=== PATIENT | female | born 1960 | race African-American/Black ===

== ENCOUNTER → 2017-06-18 | Outpatient (CLI) | payer MEDICARE, MEDICAID ==
[~2017-06-18] MED LIST: ALBUAER3 IN; AMIT PO; AMITR PO; ATE50T PO; BENA40TA7 PO; CARI250T PO; CLON0.2T PO; FLUT250M2 INH; HYDR-531 PO; NAP500T PO; QUET100T38 PO; ZOLP-158 PO
[2017-06-18 12:39] LABS: Basophils # (auto) 0.1 uL; Basophils % (auto) 0.9 % (0.0-2.0); CONDITION Y; DEFINITIVE SEE PRINTOUT; Eosinophils # (auto) 0.1 uL; Eosinophils % (auto) 2.1 % (0.0-7.0); Hemoglobin 13.6 g/dL (12.2-16.2); Lymphocytes # (auto) 2.5 uL; Lymphocytes % (auto) 38.1 % (10.0-50.0); Mean Corpuscular Hemoglobin 24.6 pg (28.0-32.0); Mean Corpuscular Hgb Conc. 32.3 g/dL (32.0-36.0); Mean Corpuscular Volume 76.1 fL (80.0-100.0); Mean Platelet Volume 10.4 fL (7.4-10.4); Monocytes # (auto) 0.3 uL; Monocytes % (auto) 4.9 % (0.0-12.0); Neutrophils # (auto) 3.6 uL; Platelet Count (auto) 289 10^3/uL (140-450); Red Cell Distribution Width 17.7 % (11.6-16.0); SUSPECT SEE PRINTOUT; White Blood Cell 6.6 10^3/uL (4.4-10.8)
[2017-06-18 12:57] LABS: Albumin 4.2 g/dL (3.4-5.0); BUN/Creatinine Ratio 12.3; Bilirubin, Total 0.3 mg/dL (0.2-1.0); Calcium 9.4 mg/dL (8.5-10.1); Potassium 4.1 mmol/L (3.5-5.1); Total Protein 8.6 g/dL (6.4-8.2)
[2017-06-19 23:43] LABS: Rheumatoid Arthritis Factor <10.0 IU/mL (0.0-13.9)
== END | disposition home or self-care (01) ==
LOC: LAB 11:49
PROVIDERS: ATTEND Physician Assistant
DX: I11.9 Hypertensive heart disease without heart failure (principal); I21.4 Non-ST elevation (NSTEMI) myocardial infarction; F31.30 Bipolar disorder, current episode depressed, mild or moderate severity, unspecified; J45.909 Unspecified asthma, uncomplicated; Z79.899 Other long term (current) drug therapy
CPT/HCPCS: 36415; 80053; 80061; 82306; 82607; 83036; 84443; 85025; 86038; 86431

== ENCOUNTER → 2017-07-02 | Outpatient (CLI) | payer MEDICARE, MEDICAID ==
[~2017-07-02] MED LIST changes: -ALBUAER3 IN; -CARI250T PO; -FLUT250M2 INH; -HYDR-531 PO; -NAP500T PO
== END | disposition home or self-care (01) ==
LOC: XYW 10:57
PROVIDERS: ATTEND Internal Medicine Cardiovascular Disease
DX: I35.1 Nonrheumatic aortic (valve) insufficiency (principal); I10 Essential (primary) hypertension; I51.7 Cardiomegaly
CPT/HCPCS: 93306

== ENCOUNTER 2017-10-04 07:43 | Emergency (ER) | payer MEDICARE, MEDICAID ==
[~2017-10-04] VITALS: Ht 157.5 cm; Wt 100.7 kg
[~2017-10-04 07:43] MED LIST changes: +ALBUAER3 IN; -AMIT PO; +CARI250T PO; -CLON0.2T PO; +FLUT250M2 INH; +HYDR-531 PO; +NAP500T PO
[2017-10-04 08:09] VITALS: BP 150/73
== END 2017-10-04 09:23 | disposition home or self-care (01) ==
LOC: ER 07:43
DX: G89.29 Other chronic pain (principal); M54.5 Low back pain; I10 Essential (primary) hypertension; J45.909 Unspecified asthma, uncomplicated; F17.210 Nicotine dependence, cigarettes, uncomplicated; Z88.6 Allergy status to analgesic agent; Z76.0 Encounter for issue of repeat prescription; Z79.899 Other long term (current) drug therapy

== ENCOUNTER 2018-04-21 12:54 | Emergency (ER) | payer OTHER, MEDICAID ==
[~2018-04-21] VITALS: Ht 157.5 cm; Wt 108.9 kg
[2018-04-21 13:12] VITALS: BP 162/77
== END 2018-04-21 15:22 | disposition home or self-care (01) ==
LOC: ER 12:54
DX: R51 Headache (principal); M54.2 Cervicalgia; J45.909 Unspecified asthma, uncomplicated; Z90.49 Acquired absence of other specified parts of digestive tract
CPT/HCPCS: 70450

== ENCOUNTER 2018-07-19 18:46 | Emergency (ER) | payer OTHER, MEDICAID ==
[~2018-07-19] VITALS: Ht 157.5 cm; Wt 113.4 kg
[2018-07-20 00:33] VITALS: BP 126/69
== END 2018-07-20 01:00 | disposition home or self-care (01) ==
LOC: ER 18:46
DX: H61.23 Impacted cerumen, bilateral (principal); H60.93 Unspecified otitis externa, bilateral; J45.909 Unspecified asthma, uncomplicated; I10 Essential (primary) hypertension; F17.210 Nicotine dependence, cigarettes, uncomplicated; Z90.49 Acquired absence of other specified parts of digestive tract; Z88.5 Allergy status to narcotic agent; Z79.1 Long term (current) use of non-steroidal anti-inflammatories (NSAID); Z79.51 Long term (current) use of inhaled steroids; Z79.899 Other long term (current) drug therapy
CPT/HCPCS: 69210

== ENCOUNTER 2019-10-05 21:32 | Inpatient (IN) | payer OTHER, MEDICAID ==
[~2019-10-05] VITALS: Ht 162.6 cm; Wt 110.8 kg
[2019-10-05] MEDS ORDERED: DILTIAZEM HCL 25 MG/5 ML VIAL IV ONE (21:45)
[2019-10-05] MEDS ORDERED: DILTIAZEM 125mg/125ml BAG KIT 125 ML IV ONE (22:15)
[2019-10-05 22:18] LABS: Basophils # (auto) 0.1 uL; Monocytes # (auto) 0.6 uL; Neutrophils # (auto) 6.5 uL
[2019-10-05 22:21] LABS: Eosinophils # (auto) 0.1 uL; Eosinophils % (auto) 1.2 % (0.0-7.0); Hematocrit 39.7 % (36.0-46.0); Hemoglobin 12.6 g/dL (12.2-16.2); Lymphocytes # (auto) 2.6 uL; Mean Corpuscular Hemoglobin 24.3 pg (28.0-32.0); Mean Corpuscular Hgb Conc. 31.8 g/dL (32.0-36.0); Mean Corpuscular Volume 76.2 fL (80.0-100.0); Monocytes % (auto) 6.3 % (0.0-12.0); Neutrophils % (auto) 65.5 % (37.0-80.0); Nucleated Red Blood Cells % 0.1 %; Platelet Count (auto) 258 10^3/uL (140-450); Red Blood Cells 5.21 10^6/uL (4.0-5.20); Red Cell Distribution Width 16.5 % (11.8-14.3)
[2019-10-05 22:34] LABS: Albumin 3.8 g/dL (3.4-5.0); Calcium 8.9 mg/dL (8.5-10.1); Magnesium 2.1 mg/dL (1.6-2.6)
[2019-10-05 22:40] LABS: BUN/Creatinine Ratio 17.3; Bilirubin, Total 0.3 mg/dL (0.2-1.0); Total Protein 7.9 g/dL (6.4-8.2)
[2019-10-05] MEDS ORDERED: ONDANSETRON HCL 4 MG/2 ML VIAL IV ONE (23:15)
[2019-10-05] MEDS ORDERED: ASPirin 81 mg TAB PO ONE (23:15)
[2019-10-05] MEDS ORDERED: MORPHINE SULFATE 4 MG/ML SYR/VIAL IV ONE (23:15)
[2019-10-05 23:21] LABS: Urine Bacteria FEW /hpf (None Seen); Urine Blood Negative /uL (Negative); Urine Mucus FEW (None Seen); Urine Specific Gravity 1.007 (1.001-1.035); Urine WBC <1 /hpf (0 - 5)
[2019-10-06] MEDS ORDERED: MORPHINE SULF INJ 2 MG/ML SYRINGE 1ML IV PRN (01:15)
[2019-10-06] MEDS ORDERED: ONDANSETRON HCL 4 MG/2 ML VIAL IV PRN (01:15)
[2019-10-06] MEDS ORDERED: NITROGLYCERIN 0.4 MG SL TAB SL PRN (01:15)
[2019-10-06] MEDS ORDERED: ALBUTEROL SULF 2.5 MG/0.5ML(0.5%) NEB SOLN NEB PRN (01:15)
[2019-10-06] MEDS ORDERED: ACETAMINOPHEN 325 MG TAB PO PRN (01:15)
[2019-10-06] MEDS ORDERED: DIGOXIN (250MCG/ML) 2 ML AMPULE IV ONE ×4 (01:30→03:15)
[2019-10-06 01:45] LABS: Partial Thromboplastin Time 27.8 sec (23.64-32.05)
--- NOTE | 2019-10-06 05:00 | NUR ---
Telemetry admit from AZ[facility] BHATT admitted to Telemetry unit. Patient oriented to MERLYN CARRANZA, primary RN, unit, room, bed, and unit policies regarding patient care and visiting hours. Patient now on continuous telemetry monitoring, tele box # 71 and telemetry reading on arrival to unit is sinus rhythm. Patient denies pain, palpitations, or shortness of breath at this time. Patient weighed by bedscale and encouraged to call if they need something. All questions and concerns addressed, patient verbalized understanding. Bed is locked in lowest position, side rails x 2 are up, call light is within reach, and bed alarm is on.
[2019-10-06 05:40] VITALS: BP 114/52
[2019-10-06] MEDS ORDERED: TRIATAB3 PO (05:55)
[2019-10-06] MEDS ORDERED: MET50T PO (05:55)
[2019-10-06] MEDS ORDERED: AMIT10TA6 PO (05:55)
--- NOTE | 2019-10-06 07:30 | NUR ---
Opening Shift Note Assumed care of patient, awake, alert, and oriented x4. No S/S of distress/SOB or pain. IV is in left forearm 20 gauge and is asymptomatic, intact, patent, and saline locked. Bed is locked and in lowest position and call light is within reach. Instructed on POC and to call for assist PRN, and patient verbalized understanding. Will continue to monitor for changes Q1hr and PRN.
[2019-10-06 09:00] VITALS: BP 135/56
[2019-10-06] MEDS: ASPirin 81 mg TAB PO SCH (10:18)
[2019-10-06] MEDS: METOPROLOL TARTRATE 50 MG TAB PO SCH ×2 (10:19→21:57)
[2019-10-06] MEDS: PANTOPRAZOLE 40 MG TAB PO SCH (10:19)
[2019-10-06] MEDS: amLODIPine BESYLATE 5 MG TAB PO SCH (10:20)
[2019-10-06] MEDS: HCTZ 25 MG TAB PO SCH (10:21)
--- NOTE | 2019-10-06 10:28 | NUR ---
RT NOTE: NO TX INDICATED AT THIS TIME. NO SIGNS OF RESPIRATORY DISTRESS NOTED. LUNG SOUNDS CLEAR T/O. RA SPO2 98 HR 88 RR 16. PT AWARE TO PAGE FOR RESPIRATORY IF NEED FOR TX ARISES. WILL CONTINUE TO MONITOR.
[2019-10-06 10:56] VITALS: BP 135/56
[2019-10-06 13:00] VITALS: BP 132/58
--- NOTE | 2019-10-06 13:00 | NUR ---
Satellite Specialist at bedside.
[2019-10-06 17:00] VITALS: BP 134/59
--- NOTE | 2019-10-06 17:47 | NUR ---
Dr. Caryn MD, at bedside; new orders received.
[2019-10-06] MEDS ORDERED: ZOLPIDEM TARTRATE 5 MG TAB PO PRN (18:00)
[2019-10-06] MEDS ORDERED: RIVAROXABAN 15 MG TAB PO SCH (18:00)
[2019-10-06 18:30] LABS: Basophils # (auto) 0.1 uL; Eosinophils # (auto) 0.3 uL; Red Blood Cells 4.94 10^6/uL (4.0-5.20)
[2019-10-06 18:32] LABS: Basophils % (auto) 0.6 % (0.0-2.0); Eosinophils % (auto) 3.4 % (0.0-7.0); Hematocrit 37.7 % (36.0-46.0); Hemoglobin 12.3 g/dL (12.2-16.2); Lymphocytes % (auto) 33.7 % (10.0-50.0); Mean Corpuscular Hemoglobin 24.8 pg (28.0-32.0); Mean Corpuscular Hgb Conc. 32.6 g/dL (32.0-36.0); Mean Corpuscular Volume 76.3 fL (80.0-100.0); Monocytes # (auto) 0.6 uL; Monocytes % (auto) 6.3 % (0.0-12.0); Nucleated Red Blood Cells % 0.1 %; Platelet Count (auto) 262 10^3/uL (140-450); Red Cell Distribution Width 16.5 % (11.8-14.3); White Blood Cell 8.9 10^3/uL (4.4-10.8)
[2019-10-06 18:49] LABS: Calcium 9.2 mg/dL (8.5-10.1); Magnesium 2.3 mg/dL (1.6-2.6); Potassium 4.3 mmol/L (3.5-5.1)
[2019-10-06 18:51] LABS: BUN/Creatinine Ratio 17.7
--- NOTE | 2019-10-06 19:30 | NUR ---
Opening Shift Note Assumed care of patient, awake and alert x4. Patient denies pain, shortness of breath, or palpitations at this time. No signs/symptoms of distress noted at this time. Instructed on plan of care and to call for assistance as needed, patient verbalized understanding. Bed is locked in lowest position, side rails x 2 are up, and call light is within reach.
--- NOTE | 2019-10-06 20:18 | NUR ---
Respiratory note: PT ASSESSED FOR PRN MED NEB TX. PT IS CURRENTLY ON ROOM AIR: HR 68, RR 16, SPO2 97%. PT SHOWS NO S/S OF SOB OR RESPIRATORY DISTRESS. MED NEB TX NOT INDICATED AT THIS TIME. PT AWARE TO CALL RESPIRATORY IF SOB OCCURS. WILL CONTINUE TO MONITOR.
[2019-10-06 22:00] VITALS: BP 142/58
[2019-10-06] MEDS ORDERED: AMITRIPTYLINE HCL 25 MG TAB PO SCH (22:00)
[2019-10-07 05:00] VITALS: BP 126/76
--- NOTE | 2019-10-07 06:12 | NUR ---
PT ASSESSED FOR PRN MED NEB TX. SPO2 97% ON RA, HR 87. PT DENIES ANY RESPIRATORY DISTRESS. NO TX INDICATED AT THIS TIME. PT IS AWARE TO HAVE RT PAGED IF TX NEEDED.
[2019-10-07 06:14] LABS: Basophils # (auto) 0.1 uL; Basophils % (auto) 0.7 % (0.0-2.0); Eosinophils # (auto) 0.3 uL; Eosinophils % (auto) 3.4 % (0.0-7.0); Hematocrit 37.8 % (36.0-46.0); Hemoglobin 12.2 g/dL (12.2-16.2); Lymphocytes # (auto) 2.7 uL; Lymphocytes % (auto) 32.5 % (10.0-50.0); Mean Corpuscular Hemoglobin 24.6 pg (28.0-32.0); Mean Corpuscular Hgb Conc. 32.2 g/dL (32.0-36.0); Mean Corpuscular Volume 76.6 fL (80.0-100.0); Monocytes # (auto) 0.6 uL; Neutrophils # (auto) 4.6 uL; Neutrophils % (auto) 56.4 % (37.0-80.0); Nucleated Red Blood Cells % 0.1 %; Platelet Count (auto) 239 10^3/uL (140-450); Red Blood Cells 4.93 10^6/uL (4.0-5.20); Red Cell Distribution Width 16.6 % (11.8-14.3); White Blood Cell 8.2 10^3/uL (4.4-10.8)
[2019-10-07 06:25] LABS: BUN/Creatinine Ratio 14.8; Calcium 8.8 mg/dL (8.5-10.1); Potassium 3.8 mmol/L (3.5-5.1)
--- NOTE | 2019-10-07 07:20 | NUR ---
Opening Shift Note Assumed care of patient, awake, alert, and oriented x4. No S/S of distress/SOB or pain. Bed is locked and in lowest position and call light is within reach. Instructed on POC and to call for assist PRN, and patient verbalized understanding. Will continue to monitor for changes Q1hr and PRN.
[2019-10-07 09:00] VITALS: BP 136/66
[2019-10-07] MEDS ORDERED: QUEtiapine FUMARATE 25 MG TAB PO SCH (10:00)
[2019-10-07] MEDS: ASPirin 81 mg TAB PO SCH (10:38)
[2019-10-07] MEDS: HCTZ 25 MG TAB PO SCH (10:39)
[2019-10-07] MEDS: amLODIPine BESYLATE 5 MG TAB PO SCH (10:40)
[2019-10-07] MEDS: METOPROLOL TARTRATE 50 MG TAB PO SCH (10:40)
[2019-10-07] MEDS: PANTOPRAZOLE 40 MG TAB PO SCH (12:39)
--- NOTE | 2019-10-07 12:40 | NUR ---
Dr. [place], Fisher Mussel, cleared patient for discharge.
[2019-10-07 13:00] VITALS: BP 120/56
--- NOTE | 2019-10-07 13:19 | NUR ---
Discharge planning per consult, patient has orders for home health. [facility] Aura [facility]. Teri from [facility] called and advised that they will accept the patient. Kofi called and advised that start of care will be tomorrow 10.08.19. Nurse Curran was advised of dc plan. Addendum: 10/07/19 at 1325 by SHAHEEN RUIZ Amended: Links added.
--- NOTE | 2019-10-07 14:12 | NUR ---
Dr. Ross Rubin MD, at bedside; new orders received.
[2019-10-07] MEDS ORDERED: AML5T PO (14:13)
[2019-10-07] MEDS ORDERED: ASPI325T25 PO (14:13)
[2019-10-07] MEDS ORDERED: HCTZ25T PO (14:13)
[2019-10-07 15:09] VITALS: BP 120/56
--- NOTE | 2019-10-07 15:30 | NUR ---
Dr. Kenny, [employer] [employer], at bedside. Addendum: 10/07/19 at 1535 by FRANSISCO HEWITT RN RN charted on wrong patient
--- NOTE | 2019-10-07 16:54 | NUR ---
Discharge instructions given as ordered. Encourage to follow up with PMD as instructed. All questions and concerns addressed. Patient verbalized understanding. Medication reconciliation form completed and copy given to patient. IV removed with catheter intact, pressure dressing applied. Telemetry unit returned to ICU. Patient taken to vehicle via wheelchair with all personal belongings, accompanied by staff member. No distress noted at time of departure.
== END 2019-10-07 16:00 | disposition home health service (06) | DRG 309 ==
LOC: EDBD 21:32 → ER 21:35 → TELE 21:36 → TELE-WESTW 10-06 04:51
PROVIDERS: ADMIT Nurse Practitioner; ATTEND Internal Medicine
DX: I48.92 Unspecified atrial flutter (principal); J45.901 Unspecified asthma with (acute) exacerbation; N17.9 Acute kidney failure, unspecified; Z68.41 Body mass index [BMI] 40.0-44.9, adult; J44.9 Chronic obstructive pulmonary disease, unspecified; E66.9 Obesity, unspecified; N18.3 Chronic kidney disease, stage 3 (moderate); F41.9 Anxiety disorder, unspecified; F17.210 Nicotine dependence, cigarettes, uncomplicated; I48.91 Unspecified atrial fibrillation; G47.00 Insomnia, unspecified; I13.10 Hypertensive heart and chronic kidney disease without heart failure, with stage 1 through stage 4 chronic kidney disease, or unspecified chronic kidney disease; Z82.49 Family history of ischemic heart disease and other diseases of the circulatory system; Z90.49 Acquired absence of other specified parts of digestive tract; Z88.5 Allergy status to narcotic agent
CPT/HCPCS: 36415; 71045; 80048; 80053; 81001; 83735; 83880; 84443; 84484; 85025; 85610; 85730; 93005; 93306; 96365; 96375; G0378; J2405

== ENCOUNTER 2019-10-12 05:47 | Emergency (ER) | payer OTHER, MEDICAID ==
[~2019-10-12] VITALS: Ht 157.5 cm; Wt 113.4 kg
[~2019-10-12 05:47] MED LIST changes: +AMIT10TA6 PO; -AMITR PO; +AML5T PO; +ASPI325T25 PO; -ATE50T PO; -BENA40TA7 PO; -CARI250T PO; +HCTZ25T PO; -HYDR-531 PO; +MET50T PO; -NAP500T PO
[2019-10-12 07:11] LABS: Basophils # (auto) 0.1 uL; Eosinophils # (auto) 0.2 uL; Hematocrit 39.9 % (36.0-46.0); Lymphocytes # (auto) 2.2 uL; Red Blood Cells 5.25 10^6/uL (4.0-5.20); White Blood Cell 8.4 10^3/uL (4.4-10.8)
[2019-10-12 07:13] LABS: Basophils % (auto) 1.2 % (0.0-2.0); Eosinophils % (auto) 2.5 % (0.0-7.0); Hemoglobin 13.2 g/dL (12.2-16.2); Lymphocytes % (auto) 26.3 % (10.0-50.0); Mean Corpuscular Hemoglobin 25.1 pg (28.0-32.0); Mean Corpuscular Hgb Conc. 33.1 g/dL (32.0-36.0); Mean Corpuscular Volume 76.1 fL (80.0-100.0); Monocytes # (auto) 0.6 uL; Monocytes % (auto) 6.6 % (0.0-12.0); Neutrophils # (auto) 5.3 uL; Neutrophils % (auto) 63.4 % (37.0-80.0); Nucleated Red Blood Cells % 0.2 %; Platelet Count (auto) 300 10^3/uL (140-450); Red Cell Distribution Width 16.5 % (11.8-14.3)
[2019-10-12] MEDS ORDERED: AMIODARONE HCL 200 MG TAB PO ONE (07:15)
[2019-10-12 07:28] LABS: INR 0.98 (0.9-1.15); Partial Thromboplastin Time 27.1 sec (23.64-32.05)
[2019-10-12 07:29] LABS: Alanine Aminotransferase 28 U/L (13-56); Albumin 3.7 g/dL (3.4-5.0); Anion Gap 6 (5-15); Aspartate Aminotransferase 17 U/L (15-37); BUN/Creatinine Ratio 12.7; Blood Urea Nitrogen 14 mg/dL (7-18); Calcium 8.8 mg/dL (8.5-10.1); Carbon Dioxide 26 mmol/L (21-32); Chloride 110 mmol/L (98-107); GFR African American 65 mL/min; GFR Non-African American 54 mL/min; Glucose 150 mg/dL (74-106); Potassium 3.6 mmol/L (3.5-5.1); Sodium 142 mmol/L (136-145)
[2019-10-12 07:34] LABS: Alkaline Phosphatase 100 U/L (45-117); Bilirubin, Total 0.5 mg/dL (0.2-1.0); Total Protein 8.5 g/dL (6.4-8.2)
[2019-10-12] MEDS ORDERED: IBUPROFEN 800 MG TAB PO ONE (08:30)
[2019-10-12 10:30] VITALS: BP 124/73
== END 2019-10-12 10:55 | disposition home or self-care (01) ==
LOC: ER 05:47
DX: I48.91 Unspecified atrial fibrillation (principal); I10 Essential (primary) hypertension; R07.89 Other chest pain; F41.9 Anxiety disorder, unspecified; J44.1 Chronic obstructive pulmonary disease with (acute) exacerbation; F17.210 Nicotine dependence, cigarettes, uncomplicated; Z90.49 Acquired absence of other specified parts of digestive tract; Z88.6 Allergy status to analgesic agent; Z79.899 Other long term (current) drug therapy
CPT/HCPCS: 36415; 71045; 80053; 83880; 84484; 85025; 85610; 85730; 93005

== ENCOUNTER 2021-10-15 21:22 | Inpatient (IN) | payer OTHER, MEDICAID ==
[~2021-10-15] VITALS: Ht 152.4 cm; Wt 99.9 kg
[~2021-10-15 21:22] MED LIST changes: -AMIT10TA6 PO; +AMIT1TAB PO; +AMIT1TAB34 PO; +AMLO-489 PO; -HCTZ25T PO; +HYDR-4833 PO; +HYDR25TA5 PO; +METO-289 PO; +QUET50TA PO; -ZOLP-158 PO; +ZOLP5TAB PO
[2021-10-15] MEDS ORDERED: IPRATROPIUM BROM 0.5 MG/2.5ML INH SOL ONE (21:39)
[2021-10-15] MEDS ORDERED: ALBUTEROL SULF 2.5 MG/0.5ML(0.5%) NEB SOLN ONE ×2 (21:39→21:42)
[2021-10-15] MEDS ORDERED: methylPREDNISolone SOD SUCC 125 MG/2 ML VL IV ONE (22:00)
[2021-10-15] MEDS ORDERED: NITROGLYCERIN 0.2MG/HR TOPICAL PATCH TD ONE (22:15)
[2021-10-15 22:19] LABS: Eosinophils # (auto) 0.1 10 ^3/uL (0-0.8); Hemoglobin 14.2 g/dL (12.2-16.2)
[2021-10-15 22:21] LABS: Basophils # (auto) 0.1 10 ^3/uL (0-0.2); Basophils % (auto) 0.6 % (0.0-2.0); Hematocrit 45.2 % (36.0-46.0); Lymphocytes # (auto) 1.7 10 ^3/uL (0.4-5.4); Lymphocytes % (auto) 15.7 % (10.0-50.0); Mean Corpuscular Hemoglobin 25.1 pg (28.0-32.0); Mean Corpuscular Hgb Conc. 31.4 g/dL (32.0-36.0); Mean Corpuscular Volume 79.9 fL (80.0-100.0); Monocytes % (auto) 9.1 % (0.0-12.0); Neutrophils % (auto) 73.6 % (37.0-80.0); Nucleated Red Blood Cells % 0.2 %; Red Blood Cells 5.66 10^6/uL (4.0-5.20); Red Cell Distribution Width 19.2 % (11.8-14.3); White Blood Cell 10.8 10^3/uL (4.4-10.8)
[2021-10-15] MEDS ORDERED: NITROGLYCERIN 2% OINT 1GM PKG TD ONE (22:30)
[2021-10-15 23:04] LABS: INR 1.21 (0.9-1.15)
[2021-10-15 23:06] LABS: BUN/Creatinine Ratio 14.6; Calcium 8.2 mg/dL (8.5-10.1)
[2021-10-15 23:07] LABS: Albumin 2.9 g/dL (3.4-5.0); Bilirubin, Total 1.7 mg/dL (0.2-1.0); Magnesium 2.6 mg/dL (1.6-2.6); Total Protein 7.4 g/dL (6.4-8.2)
[2021-10-15] MEDS ORDERED: ACETAMINOPHEN 325 MG TAB PO ONE (23:15)
[2021-10-15] MEDS ORDERED: hydrALAZINE HCL 20 MG/ML VL IV ONE (23:15)
[2021-10-15] MEDS ORDERED: ASPirin 325 MG TAB PO ONE (23:15)
[2021-10-15] MEDS ORDERED: FUROSEMIDE 40 MG/4 ML VIAL IV ONE (23:15)
[2021-10-16] MEDS ORDERED: ALBUTEROL SULF 2.5 MG/0.5ML(0.5%) NEB SOLN NEB ONE
[2021-10-16] MEDS ORDERED: IPRATROPIUM BROM 0.5 MG/2.5ML INH SOL NEB ONE
[2021-10-16] MEDS ORDERED: ONDANSETRON HCL 4 MG/2 ML VIAL IV PRN (00:30)
[2021-10-16] MEDS ORDERED: NITROGLYCERIN 0.4 MG SL TAB SL PRN (00:30)
[2021-10-16] MEDS ORDERED: LORazepam 2MG/ML-1ML VIAL IV ONE ×2 (00:30→03:45)
[2021-10-16] MEDS ORDERED: MORPHINE SULFATE INJECTION 2 MG/ML SYRG IV PRN (00:30)
[2021-10-16] MEDS ORDERED: dilTIAZem 25 MG/5 ML VIAL IV ONE (00:45)
[2021-10-16] MEDS ORDERED: IOHEXOL 350 MG/ML 100ML IJ ONE (00:53)
[2021-10-16 01:25] LABS: Urine Bacteria NONE SEEN /hpf (None Seen); Urine Blood Negative /uL (Negative); Urine Hyaline Cast FEW /lpf (0 - 2); Urine Specific Gravity 1.006 (1.001-1.035); Urine WBC 1 /hpf (0 - 5)
[2021-10-16] MEDS ORDERED: dilTIAZem 125mg/125ml BAG KIT 125 ML IV SCH (02:00)
[2021-10-16] MEDS: IPRATROPIUM BROM 0.5 MG/2.5ML INH SOL NEB SCH ×4 (03:04→21:29)
[2021-10-16] MEDS ORDERED: ENOXAPARIN SOD 100 MG/1 ML SYRINGE SC ONE (05:45)
[2021-10-16] MEDS ORDERED: AMIODARONE HCL 150 MG in D5W 5% 100 ML IV ONE (07:00)
[2021-10-16] MEDS ORDERED: AMIODARONE 450mg/250ml AE 250 ML IV SCH (07:15)
[2021-10-16] MEDS: ALBUTEROL SULF 2.5 MG/0.5ML(0.5%) NEB SOLN NEB SCH ×3 (07:32→21:28)
[2021-10-16] MEDS ORDERED: APIXABAN 5 MG TAB PO SCH (10:00)
[2021-10-16] MEDS ORDERED: ASPirin 81 mg TAB PO SCH (10:00)
[2021-10-16] MEDS ORDERED: PANTOPRAZOLE 40 MG TAB PO SCH (10:00)
[2021-10-16] MEDS: FUROSEMIDE 20 MG/2 ML VIAL IV SCH ×2 (10:25→18:02)
[2021-10-16] MEDS: METOPROLOL TARTRATE 50 MG TAB PO SCH ×2 (10:26→21:39)
[2021-10-16] MEDS: amLODIPine BESYLATE 5 MG TAB PO SCH (10:26)
[2021-10-16 10:48] LABS: Alcohol, Urine < 3.0 mg/dL (0-10); Amphetamine Screen, Urine NEGATIVE (NEGATIVE); Barbiturate Scree,Urine NEGATIVE (NEGATIVE); Benzodiazephine Screen, Urine NEGATIVE (NEGATIVE); Cannabinoid Screen, Urine NEGATIVE (NEGATIVE); Cocaine Screen, Urine NEGATIVE (NEGATIVE); Opiate Scree,Urine NEGATIVE (NEGATIVE); Phencyclidine Screen, Urine NEGATIVE (NEGATIVE)
[2021-10-16] MEDS ORDERED: dilTIAZem 25 MG/5 ML VIAL IV PRN (11:45)
[2021-10-16] MEDS ORDERED: DIGOXIN (250MCG/ML) 2 ML AMPULE IV ONE (11:45)
[2021-10-16] MEDS ORDERED: DIGOXIN (250MCG/ML) 2 ML AMPULE ONE (11:53)
[2021-10-16] MEDS: DIGOXIN (250MCG/ML) 2 ML AMPULE IV ONE ×2 (13:00→13:13)
[2021-10-16] MEDS: dilTIAZem 125mg/125ml BAG KIT 125 ML IV SCH (13:00)
[2021-10-16 14:15] VITALS: BP 127/70
[2021-10-16] MEDS: AMIODARONE 450mg/250ml AE 250 ML IV SCH ×2 (14:19→20:50)
[2021-10-16] MEDS ORDERED: methylPREDNISolone SOD SUCC 125 MG/2 ML VL IV ONE (16:00)
[2021-10-16 16:54] LABS: Basophils # (auto) 0 10 ^3/uL (0-0.2); Basophils % (auto) 0.3 % (0.0-2.0); Eosinophils # (auto) 0 10 ^3/uL (0-0.8); Hemoglobin 12.9 g/dL (12.2-16.2); Lymphocytes # (auto) 0.7 10 ^3/uL (0.4-5.4); Monocytes # (auto) 1.3 10 ^3/uL (0-1.3); Neutrophils # (auto) 9.6 10 ^3/uL (1.6-8.6); Nucleated Red Blood Cells % 0.2 %
[2021-10-16 16:56] LABS: Lymphocytes % (auto) 6.1 % (10.0-50.0); Mean Corpuscular Hemoglobin 24.1 pg (28.0-32.0); Mean Corpuscular Hgb Conc. 30.8 g/dL (32.0-36.0); Mean Corpuscular Volume 78.4 fL (80.0-100.0); Monocytes % (auto) 10.8 % (0.0-12.0); Neutrophils % (auto) 82.8 % (37.0-80.0); Red Blood Cells 5.36 10^6/uL (4.0-5.20); Red Cell Distribution Width 18.5 % (11.8-14.3); White Blood Cell 11.7 10^3/uL (4.4-10.8)
[2021-10-16 21:22] LABS: BUN/Creatinine Ratio 16.3; Calcium 8.6 mg/dL (8.5-10.1)
[2021-10-16] MEDS: AMITRIPTYLINE HCL 25 MG TAB PO SCH (21:48)
[2021-10-16] MEDS: PANTOPRAZOLE 40 MG TAB PO SCH (21:48)
[2021-10-16] MEDS: ATORVASTATIN 20 MG TAB PO SCH (21:48)
[2021-10-16] MEDS: methylPREDNISolone SOD SUCC 40 MG/ML VL IV SCH (21:48)
[2021-10-16] MEDS: ACETAMINOPHEN 325 MG TAB PO PRN (21:52)
[2021-10-16] MEDS: TEMAZEPAM 15 MG CAP PO PRN (21:55)
[2021-10-17] MEDS: IPRATROPIUM BROM 0.5 MG/2.5ML INH SOL NEB SCH ×4 (06:12→18:04)
[2021-10-17] MEDS: ALBUTEROL SULF 2.5 MG/0.5ML(0.5%) NEB SOLN NEB SCH ×3 (06:12→18:04)
[2021-10-17] MEDS: methylPREDNISolone SOD SUCC 40 MG/ML VL IV SCH ×3 (06:23→21:06)
[2021-10-17] MEDS: FUROSEMIDE 20 MG/2 ML VIAL IV SCH ×2 (06:23→18:22)
[2021-10-17 07:21] LABS: Basophils # (auto) 0 10 ^3/uL (0-0.2); Basophils % (auto) 0.2 % (0.0-2.0); Eosinophils # (auto) 0 10 ^3/uL (0-0.8); Hemoglobin 12.2 g/dL (12.2-16.2); Monocytes # (auto) 0.6 10 ^3/uL (0-1.3); Nucleated Red Blood Cells % 0.1 %
[2021-10-17 07:24] LABS: Hematocrit 40.1 % (36.0-46.0); Lymphocytes # (auto) 0.3 10 ^3/uL (0.4-5.4); Lymphocytes % (auto) 2.8 % (10.0-50.0); Mean Corpuscular Hemoglobin 24.3 pg (28.0-32.0); Mean Corpuscular Hgb Conc. 30.4 g/dL (32.0-36.0); Mean Corpuscular Volume 79.9 fL (80.0-100.0); Monocytes % (auto) 4.8 % (0.0-12.0); Neutrophils # (auto) 11.5 10 ^3/uL (1.6-8.6); Neutrophils % (auto) 92.2 % (37.0-80.0); Red Blood Cells 5.02 10^6/uL (4.0-5.20); Red Cell Distribution Width 18.9 % (11.8-14.3); White Blood Cell 12.4 10^3/uL (4.4-10.8)
[2021-10-17 08:00] LABS: Albumin 2.9 g/dL (3.4-5.0); BUN/Creatinine Ratio 18.9; Bilirubin, Total 1.2 mg/dL (0.2-1.0); Calcium 8.8 mg/dL (8.5-10.1); Total Protein 7.3 g/dL (6.4-8.2)
[2021-10-17] MEDS: AMIODARONE 450mg/250ml AE 250 ML IV SCH (08:41)
[2021-10-17] MEDS: METOPROLOL TARTRATE 50 MG TAB PO SCH ×2 (09:56→21:16)
[2021-10-17] MEDS: amLODIPine BESYLATE 5 MG TAB PO SCH (09:57)
[2021-10-17] MEDS: PANTOPRAZOLE 40 MG TAB PO SCH ×2 (09:57→21:17)
[2021-10-17] MEDS: ENOXAPARIN SOD 40 MG/0.4 ML SYRINGE SC SCH (10:00)
[2021-10-17] MEDS: dilTIAZem 125mg/125ml BAG KIT 125 ML IV SCH (15:00)
[2021-10-17] MEDS ORDERED: DOXYCYCLINE 100MG/250ML 250 ML IV ONE (17:15)
[2021-10-17] MEDS: AMIODARONE HCL 200 MG TAB PO SCH ×2 (18:21→21:16)
[2021-10-17] MEDS: ATORVASTATIN 20 MG TAB PO SCH (21:16)
[2021-10-17] MEDS: AMITRIPTYLINE HCL 25 MG TAB PO SCH (21:16)
[2021-10-17] MEDS: TEMAZEPAM 15 MG CAP PO PRN (21:18)
[2021-10-18] MEDS: TEMAZEPAM 15 MG CAP PO PRN ×2 (02:48→22:56)
[2021-10-18] MEDS: DOXYCYCLINE 100 MG TAB/CAP PO SCH ×2 (05:00→17:00)
[2021-10-18] MEDS ORDERED: hydrALAZINE HCL 20 MG/ML VL IV ONE (05:00)
[2021-10-18] MEDS: FUROSEMIDE 20 MG/2 ML VIAL IV SCH (06:00)
[2021-10-18] MEDS: methylPREDNISolone SOD SUCC 40 MG/ML VL IV SCH ×2 (06:00→22:54)
[2021-10-18] MEDS: AMIODARONE HCL 200 MG TAB PO SCH ×3 (06:00→22:55)
[2021-10-18] MEDS: ALBUTEROL SULF 2.5 MG/0.5ML(0.5%) NEB SOLN NEB SCH ×3 (06:15→18:07)
[2021-10-18] MEDS: IPRATROPIUM BROM 0.5 MG/2.5ML INH SOL NEB SCH ×3 (06:15→18:07)
[2021-10-18 06:47] LABS: Basophils # (auto) 0 10 ^3/uL (0-0.2); Basophils % (auto) 0.1 % (0.0-2.0); Eosinophils # (auto) 0 10 ^3/uL (0-0.8); Hematocrit 41.7 % (36.0-46.0); Lymphocytes # (auto) 0.5 10 ^3/uL (0.4-5.4); Lymphocytes % (auto) 3.3 % (10.0-50.0); Mean Corpuscular Hemoglobin 24.8 pg (28.0-32.0); Mean Corpuscular Hgb Conc. 31.2 g/dL (32.0-36.0); Mean Corpuscular Volume 79.6 fL (80.0-100.0); Monocytes # (auto) 0.8 10 ^3/uL (0-1.3); Monocytes % (auto) 5.8 % (0.0-12.0); Neutrophils # (auto) 12.7 10 ^3/uL (1.6-8.6); Neutrophils % (auto) 90.8 % (37.0-80.0); Nucleated Red Blood Cells % 0.2 %; Red Blood Cells 5.24 10^6/uL (4.0-5.20); Red Cell Distribution Width 18.5 % (11.8-14.3)
[2021-10-18 07:13] LABS: BUN/Creatinine Ratio 30.8; Calcium 9.1 mg/dL (8.5-10.1); Potassium 4.4 mmol/L (3.5-5.1)
[2021-10-18] MEDS: METOPROLOL TARTRATE 50 MG TAB PO SCH ×2 (10:00→22:56)
[2021-10-18] MEDS: ENOXAPARIN SOD 40 MG/0.4 ML SYRINGE SC SCH (10:10)
[2021-10-18] MEDS: amLODIPine BESYLATE 5 MG TAB PO SCH (10:10)
[2021-10-18] MEDS: PANTOPRAZOLE 40 MG TAB PO SCH ×2 (10:10→22:56)
[2021-10-18] MEDS: INSULIN LANTUS (GLARGINE) 1 /0.01ml (100units/ml) SC SCH (14:45)
[2021-10-18] MEDS ORDERED: METOPROLOL TARTRATE 50 MG TAB PO ONE (14:45)
[2021-10-18] MEDS ORDERED: DEXTROSE (50%) 50ML SYRG IV PRN (14:45)
[2021-10-18] MEDS: ACCU-CHEK COMFORT CURVE STRIP VI SCH (18:10)
[2021-10-18] MEDS: InsuLIN REG 1unit/0.01ml Soln (100units/ml) SC SCH (18:10)
[2021-10-18] MEDS: AMITRIPTYLINE HCL 25 MG TAB PO SCH (22:55)
[2021-10-18] MEDS: ATORVASTATIN 20 MG TAB PO SCH (22:55)
[2021-10-18] MEDS: APIXABAN 5 MG TAB PO SCH (22:55)
[2021-10-18] MEDS: ACETAMINOPHEN 325 MG TAB PO PRN (22:57)
[2021-10-19] MEDS: ACCU-CHEK COMFORT CURVE STRIP VI SCH ×4 (00:28→17:10)
[2021-10-19] MEDS: InsuLIN REG 1unit/0.01ml Soln (100units/ml) SC SCH ×4 (00:30→17:09)
[2021-10-19] MEDS: IPRATROPIUM BROM 0.5 MG/2.5ML INH SOL NEB SCH ×4 (01:01→18:27)
[2021-10-19] MEDS: ALBUTEROL SULF 2.5 MG/0.5ML(0.5%) NEB SOLN NEB SCH ×4 (01:01→18:27)
[2021-10-19] MEDS: AMIODARONE HCL 200 MG TAB PO SCH ×3 (06:55→22:17)
[2021-10-19] MEDS: DOXYCYCLINE 100 MG TAB/CAP PO SCH ×2 (06:55→16:49)
[2021-10-19] MEDS: methylPREDNISolone SOD SUCC 40 MG/ML VL IV SCH ×2 (10:00→22:17)
[2021-10-19] MEDS: APIXABAN 5 MG TAB PO SCH ×2 (10:00→22:00)
[2021-10-19] MEDS: amLODIPine BESYLATE 5 MG TAB PO SCH (10:00)
[2021-10-19] MEDS: METOPROLOL TARTRATE 50 MG TAB PO SCH ×2 (10:00→22:00)
[2021-10-19] MEDS: FUROSEMIDE 20 MG TAB PO SCH (10:00)
[2021-10-19] MEDS: PANTOPRAZOLE 40 MG TAB PO SCH ×2 (10:00→22:00)
[2021-10-19] MEDS: INSULIN LANTUS (GLARGINE) 1 /0.01ml (100units/ml) SC SCH (10:00)
[2021-10-19 10:13] LABS: BUN/Creatinine Ratio 34.1; Calcium 9.2 mg/dL (8.5-10.1); Potassium 4.3 mmol/L (3.5-5.1)
[2021-10-19 10:22] LABS: Basophils # (auto) 0 10 ^3/uL (0-0.2); Basophils % (auto) 0.3 % (0.0-2.0); Eosinophils # (auto) 0 10 ^3/uL (0-0.8); Hematocrit 43.8 % (36.0-46.0); Hemoglobin 13.3 g/dL (12.2-16.2); Lymphocytes # (auto) 0.5 10 ^3/uL (0.4-5.4); Lymphocytes % (auto) 4.4 % (10.0-50.0); Mean Corpuscular Hemoglobin 24.1 pg (28.0-32.0); Mean Corpuscular Hgb Conc. 30.3 g/dL (32.0-36.0); Mean Corpuscular Volume 79.4 fL (80.0-100.0); Monocytes # (auto) 0.8 10 ^3/uL (0-1.3); Monocytes % (auto) 6.1 % (0.0-12.0); Neutrophils # (auto) 11.3 10 ^3/uL (1.6-8.6); Neutrophils % (auto) 89.2 % (37.0-80.0); Nucleated Red Blood Cells % 0.2 %; Red Blood Cells 5.52 10^6/uL (4.0-5.20); Red Cell Distribution Width 18.3 % (11.8-14.3); White Blood Cell 12.6 10^3/uL (4.4-10.8)
[2021-10-19 12:10] VITALS: BP 156/84
[2021-10-19] MEDS ORDERED: AMIT100T75 PO (14:50)
[2021-10-19] MEDS ORDERED: HYDR12.56 PO (14:57)
[2021-10-19] MEDS ORDERED: ASPI325T4 PO ×2 (14:59→18:14)
[2021-10-19] MEDS ORDERED: QUET200T45 PO (15:03)
[2021-10-19] MEDS ORDERED: ALBU0.084 NEB ×2 (15:08→18:14)
[2021-10-19] MEDS ORDERED: APIX5TAB PO (18:14)
[2021-10-19] MEDS ORDERED: INSREGI SC (18:14)
[2021-10-19] MEDS ORDERED: AMIO200T33 PO (18:14)
[2021-10-19] MEDS ORDERED: DOX100T PO (18:14)
[2021-10-19] MEDS ORDERED: INSLANTI SC (18:14)
[2021-10-19] MEDS ORDERED: FUR20T PO (18:14)
[2021-10-19] MEDS ORDERED: ALBUAER3 IN (18:14)
[2021-10-19] MEDS ORDERED: AML5T PO (18:14)
[2021-10-19] MEDS ORDERED: PANT40T PO (18:14)
[2021-10-19] MEDS ORDERED: PRED20TA2 PO (18:14)
[2021-10-19] MEDS ORDERED: ATOR20TA50 PO (18:14)
[2021-10-19] MEDS ORDERED: MET50T PO (18:14)
[2021-10-19] MEDS ORDERED: FLUT250M2 INH (18:14)
[2021-10-19] MEDS: ATORVASTATIN 20 MG TAB PO SCH (22:00)
[2021-10-19] MEDS: AMITRIPTYLINE HCL 25 MG TAB PO SCH (22:17)
[2021-10-19] MEDS: TEMAZEPAM 15 MG CAP PO PRN (22:18)
[2021-10-19] MEDS: ACETAMINOPHEN 325 MG TAB PO PRN (22:19)
[2021-10-20] MEDS: ACCU-CHEK COMFORT CURVE STRIP VI SCH ×5 (00:02→23:08)
[2021-10-20] MEDS: InsuLIN REG 1unit/0.01ml Soln (100units/ml) SC SCH ×5 (00:03→23:25)
[2021-10-20] MEDS: ALBUTEROL SULF 2.5 MG/0.5ML(0.5%) NEB SOLN NEB SCH ×3 (06:46→18:26)
[2021-10-20] MEDS: IPRATROPIUM BROM 0.5 MG/2.5ML INH SOL NEB SCH ×3 (06:46→18:26)
[2021-10-20] MEDS: AMIODARONE HCL 200 MG TAB PO SCH ×3 (07:27→22:03)
[2021-10-20] MEDS: DOXYCYCLINE 100 MG TAB/CAP PO SCH ×2 (07:27→17:14)
[2021-10-20] MEDS: APIXABAN 5 MG TAB PO SCH ×2 (10:01→22:03)
[2021-10-20] MEDS: methylPREDNISolone SOD SUCC 40 MG/ML VL IV SCH ×2 (10:01→22:03)
[2021-10-20] MEDS: FUROSEMIDE 20 MG TAB PO SCH (10:01)
[2021-10-20] MEDS: amLODIPine BESYLATE 5 MG TAB PO SCH (10:02)
[2021-10-20] MEDS: PANTOPRAZOLE 40 MG TAB PO SCH ×2 (10:02→22:04)
[2021-10-20] MEDS: METOPROLOL TARTRATE 50 MG TAB PO SCH ×2 (10:02→22:04)
[2021-10-20] MEDS: INSULIN LANTUS (GLARGINE) 1 /0.01ml (100units/ml) SC SCH (10:02)
[2021-10-20 12:51] VITALS: BP 126/60
[2021-10-20 17:00] VITALS: BP 113/66
[2021-10-20 22:00] VITALS: BP 120/64
[2021-10-20] MEDS: AMITRIPTYLINE HCL 25 MG TAB PO SCH (22:03)
[2021-10-20] MEDS: ATORVASTATIN 20 MG TAB PO SCH (22:04)
[2021-10-20] MEDS: ACETAMINOPHEN 325 MG TAB PO PRN (22:06)
[2021-10-21] MEDS: TEMAZEPAM 15 MG CAP PO PRN (03:39)
[2021-10-21 04:43] VITALS: BP 138/81
[2021-10-21] MEDS: DOXYCYCLINE 100 MG TAB/CAP PO SCH (05:01)
[2021-10-21] MEDS: ACCU-CHEK COMFORT CURVE STRIP VI SCH ×2 (05:02→11:59)
[2021-10-21] MEDS: AMIODARONE HCL 200 MG TAB PO SCH ×2 (05:02→16:20)
[2021-10-21] MEDS: InsuLIN REG 1unit/0.01ml Soln (100units/ml) SC SCH ×2 (05:36→12:00)
[2021-10-21] MEDS: ALBUTEROL SULF 2.5 MG/0.5ML(0.5%) NEB SOLN NEB SCH ×2 (07:13→13:32)
[2021-10-21] MEDS: IPRATROPIUM BROM 0.5 MG/2.5ML INH SOL NEB SCH ×2 (07:13→13:32)
[2021-10-21 08:00] VITALS: BP 140/82
[2021-10-21 09:00] VITALS: BP 140/82
[2021-10-21] MEDS: APIXABAN 5 MG TAB PO SCH (09:34)
[2021-10-21] MEDS: methylPREDNISolone SOD SUCC 40 MG/ML VL IV SCH (09:34)
[2021-10-21] MEDS: FUROSEMIDE 20 MG TAB PO SCH (09:35)
[2021-10-21] MEDS: METOPROLOL TARTRATE 50 MG TAB PO SCH (09:35)
[2021-10-21] MEDS: amLODIPine BESYLATE 5 MG TAB PO SCH (09:35)
[2021-10-21] MEDS: PANTOPRAZOLE 40 MG TAB PO SCH (09:36)
[2021-10-21] MEDS: INSULIN LANTUS (GLARGINE) 1 /0.01ml (100units/ml) SC SCH (10:05)
[2021-10-21 12:52] VITALS: BP 131/68
== END 2021-10-21 16:08 | disposition home health service (06) | DRG 280 ==
LOC: ER 21:22 → EDBD 21:22 → TELE 10-16 00:30 → TELE-WESTW 10-20 12:04
PROVIDERS: ADMIT Nurse Practitioner; ATTEND Internal Medicine
PROC: 5A0935A Assistance with Respiratory Ventilation, Less than 24 Consecutive Hours, High Flow/Velocity Cannula (ICD-10-PCS; principal; 2021-10-16)
PROC: 05HA33Z Insertion of Infusion Device into Left Brachial Vein, Percutaneous Approach (ICD-10-PCS; 2021-10-16)
PROC: B54NZZA Ultrasonography of Left Upper Extremity Veins, Guidance (ICD-10-PCS; 2021-10-16)
DX: I21.4 Non-ST elevation (NSTEMI) myocardial infarction (principal); I50.43 Acute on chronic combined systolic (congestive) and diastolic (congestive) heart failure; J96.01 Acute respiratory failure with hypoxia; R04.2 Hemoptysis; D68.59 Other primary thrombophilia; E87.4 Mixed disorder of acid-base balance; I13.0 Hypertensive heart and chronic kidney disease with heart failure and stage 1 through stage 4 chronic kidney disease, or unspecified chronic kidney disease; I31.3 Pericardial effusion (noninflammatory); J98.11 Atelectasis; J44.1 Chronic obstructive pulmonary disease with (acute) exacerbation; I42.2 Other hypertrophic cardiomyopathy; Z99.81 Dependence on supplemental oxygen; E66.01 Morbid (severe) obesity due to excess calories; N18.30 Chronic kidney disease, stage 3 unspecified; F17.210 Nicotine dependence, cigarettes, uncomplicated; F32.A Depression, unspecified; I27.20 Pulmonary hypertension, unspecified; E01.0 Iodine-deficiency related diffuse (endemic) goiter; I48.91 Unspecified atrial fibrillation; Z68.37 Body mass index [BMI] 37.0-37.9, adult; Z20.822 Contact with and (suspected) exposure to COVID-19; Z79.01 Long term (current) use of anticoagulants; Z82.49 Family history of ischemic heart disease and other diseases of the circulatory system; Z90.49 Acquired absence of other specified parts of digestive tract; Z88.5 Allergy status to narcotic agent
CPT/HCPCS: 36415; 36600; 71045; 71275; 80048; 80053; 80307; 81001; 82728; 82805; 82962; 83605; 83735; 83880; 84436; 84443; 84480; 84484; 85025; 85379; 85610; 87040; 87426; 93005; 93306; 93971; 94640; 96374; 96375; 96376; 97162; 99291; G0378; J1815; J3490; J7060

== ENCOUNTER 2021-11-16 10:37 | Inpatient (IN) | payer OTHER, MEDICAID ==
[~2021-11-16] VITALS: Ht 157.5 cm; Wt 116.0 kg
[~2021-11-16 10:37] MED LIST changes: +ALBU0.084 NEB; +AMIO200T33 PO; +AMIT100T75 PO; -AMIT1TAB PO; -AMIT1TAB34 PO; -AMLO-489 PO; +APIX5TAB PO; -ASPI325T25 PO; +ASPI325T4 PO; +ATOR20TA50 PO; +DOX100T PO; +FUR20T PO; -HYDR25TA5 PO; +INSLANTI SC; +INSREGI SC; -METO-289 PO; +PANT40T PO; +PRED20TA2 PO; -QUET100T38 PO; +QUET200T45 PO; -QUET50TA PO
[2021-11-16] MEDS ORDERED: LORazepam 2MG/ML-1ML VIAL IV ONE (11:00)
[2021-11-16 11:14] LABS: Basophils # (auto) 0.1 10 ^3/uL (0-0.2); Basophils % (auto) 0.6 % (0.0-2.0); Eosinophils # (auto) 0 10 ^3/uL (0-0.8); Eosinophils % (auto) 0.4 % (0.0-7.0); Hematocrit 41.9 % (36.0-46.0); Hemoglobin 13.2 g/dL (12.2-16.2); Lymphocytes # (auto) 1.4 10 ^3/uL (0.4-5.4); Lymphocytes % (auto) 13.2 % (10.0-50.0); Mean Corpuscular Hemoglobin 23.8 pg (28.0-32.0); Mean Corpuscular Hgb Conc. 31.5 g/dL (32.0-36.0); Mean Corpuscular Volume 75.5 fL (80.0-100.0); Monocytes # (auto) 1.4 10 ^3/uL (0-1.3); Monocytes % (auto) 13.3 % (0.0-12.0); Neutrophils # (auto) 7.5 10 ^3/uL (1.6-8.6); Neutrophils % (auto) 72.5 % (37.0-80.0); Nucleated Red Blood Cells % 0.1 %; Red Blood Cells 5.55 10^6/uL (4.0-5.20); Red Cell Distribution Width 18.6 % (11.8-14.3); White Blood Cell 10.3 10^3/uL (4.4-10.8)
[2021-11-16] MEDS ORDERED: AMIODARONE 450mg/250ml AE 250 ML IV SCH (12:15)
[2021-11-16] MEDS ORDERED: AMIODARONE HCL 150 MG in D5W 5% 100 ML IV ONE (12:15)
[2021-11-16] MEDS ORDERED: MORPHINE SULFATE 4 MG/ML SYR/VIAL IV ONE (13:15)
[2021-11-16] MEDS ORDERED: ONDANSETRON HCL 4 MG/2 ML VIAL IV ONE (13:15)
[2021-11-16] MEDS ORDERED: IOHEXOL 350 MG/ML 100ML IJ ONE (14:11)
[2021-11-16] MEDS ORDERED: NITROGLYCERIN 0.4 MG SL TAB SL PRN ×2 (15:00→23:45)
[2021-11-16] MEDS ORDERED: MORPHINE SULFATE INJECTION 2 MG/ML SYRG IV PRN ×2 (15:00→23:45)
[2021-11-16] MEDS ORDERED: AMIODARONE HCL 200 MG TAB PO ONE ×2 (15:30→20:45)
[2021-11-16 15:31] LABS: Albumin 3.2 g/dL (3.4-5.0); Calcium 8.5 mg/dL (8.5-10.1); Magnesium 2.5 mg/dL (1.6-2.6); Potassium 3.7 mmol/L (3.5-5.1)
[2021-11-16 15:41] LABS: BUN/Creatinine Ratio 16.2; Bilirubin, Total 1.8 mg/dL (0.2-1.0); Total Protein 7.4 g/dL (6.4-8.2)
[2021-11-16] MEDS: dilTIAZem 125mg/125ml BAG KIT 125 ML IV SCH (15:45)
[2021-11-16] MEDS ORDERED: cefTRIAXone 1GM/50ML D5W 50 ML IV ONE ×2 (16:30→23:45)
[2021-11-16] MEDS ORDERED: ALBUTEROL SULF 2.5 MG/0.5ML(0.5%) NEB SOLN NEB SCH (18:00)
[2021-11-16] MEDS ORDERED: IPRATROPIUM BROM 0.5 MG/2.5ML INH SOL NEB SCH (18:00)
[2021-11-16] MEDS ORDERED: methylPREDNISolone SOD SUCC 40 MG/ML VL IV SCH (22:00)
[2021-11-16] MEDS ORDERED: TEMAZEPAM 15 MG CAP PO ONE (22:30)
[2021-11-16] MEDS ORDERED: ACETAMINOPHEN 325 MG TAB PO PRN ×2 (22:30→23:45)
[2021-11-16] MEDS ORDERED: BUMETANIDE 2.5mg/10ml (0.25 mg/ml) INJ IV ONE (23:45)
[2021-11-16] MEDS ORDERED: ALUM & MAG HYDROX-SIMETH LIQ(MAALOX) 30 ML PO PRN (23:45)
[2021-11-16] MEDS ORDERED: METOCLOPRAMIDE HCL 5MG/ml INJ 2ml VIAL IV PRN (23:45)
[2021-11-16] MEDS ORDERED: FAMOTIDINE (10MG/ML) 2ML VL IV ONE (23:45)
[2021-11-16] MEDS ORDERED: AZITHROMYCIN 500MG/ 250ML 250 ML IV ONE (23:45)
[2021-11-16] MEDS ORDERED: METOPROLOL SUCCINATE XL 50 MG TAB PO ONE (23:45)
[2021-11-16] MEDS ORDERED: DEXTROSE (50%) 50ML SYRG IV PRN (23:45)
[2021-11-16] MEDS ORDERED: BENAZEPRIL HCL 10 MG TAB PO ONE (23:45)
[2021-11-16] MEDS ORDERED: IPRATROPIUM BROM 0.5 MG/2.5ML INH SOL NEB ONE (23:45)
[2021-11-16] MEDS ORDERED: BUDESONIDE (INHALATION) 0.5 MG/2 ML NEB NEB ONE (23:45)
[2021-11-17] MEDS: HYDROcodone-ACET 5/325MG TAB PO PRN (00:56)
[2021-11-17] MEDS: LORazepam 0.5 MG TAB PO PRN ×2 (04:11→15:21)
[2021-11-17] MEDS ORDERED: ACETAMINOPHEN 500 MG TAB PO ONE (05:15)
[2021-11-17] MEDS ORDERED: BUMETANIDE 2.5mg/10ml (0.25 mg/ml) INJ IV SCH (06:00)
[2021-11-17] MEDS: methylPREDNISolone SOD SUCC 40 MG/ML VL IV SCH ×3 (06:30→22:14)
[2021-11-17] MEDS: InsuLIN REG 1unit/0.01ml Soln (100units/ml) SC SCH ×4 (06:35→22:35)
[2021-11-17] MEDS: ACCU-CHEK COMFORT CURVE STRIP VI SCH ×4 (06:35→22:27)
[2021-11-17] MEDS: METOPROLOL SUCCINATE XL 50 MG TAB PO SCH (09:38)
[2021-11-17] MEDS: NIFEdipine ER 30 MG TAB PO SCH (09:49)
[2021-11-17] MEDS: BENAZEPRIL HCL 10 MG TAB PO SCH (09:49)
[2021-11-17] MEDS: IPRATROPIUM BROM 0.5 MG/2.5ML INH SOL NEB SCH ×3 (09:52→23:13)
[2021-11-17] MEDS: BUDESONIDE (INHALATION) 0.5 MG/2 ML NEB NEB SCH ×2 (09:53→18:52)
[2021-11-17] MEDS ORDERED: APIXABAN 5 MG TAB PO SCH (10:00)
[2021-11-17] MEDS: FAMOTIDINE (10MG/ML) 2ML VL IV SCH ×2 (10:23→22:14)
[2021-11-17] MEDS: ASPirin 81 mg TAB PO SCH (10:24)
[2021-11-17] MEDS: AMIODARONE HCL 200 MG TAB PO SCH ×2 (10:25→22:15)
[2021-11-17] MEDS: dilTIAZem 125mg/125ml BAG KIT 125 ML IV SCH (11:28)
[2021-11-17 12:21] LABS: Basophils # (auto) 0 10 ^3/uL (0-0.2); Basophils % (auto) 0.2 % (0.0-2.0); Eosinophils # (auto) 0 10 ^3/uL (0-0.8); Hemoglobin 11.9 g/dL (12.2-16.2); Lymphocytes # (auto) 0.6 10 ^3/uL (0.4-5.4); Mean Corpuscular Hgb Conc. 31.4 g/dL (32.0-36.0); Mean Corpuscular Volume 76.4 fL (80.0-100.0); Monocytes # (auto) 0.6 10 ^3/uL (0-1.3); Monocytes % (auto) 5.6 % (0.0-12.0); Neutrophils # (auto) 9.5 10 ^3/uL (1.6-8.6); Neutrophils % (auto) 88.2 % (37.0-80.0); Red Blood Cells 4.98 10^6/uL (4.0-5.20); Red Cell Distribution Width 18.1 % (11.8-14.3); White Blood Cell 10.8 10^3/uL (4.4-10.8)
[2021-11-17 12:38] LABS: INR 1.1 (0.9-1.15); Partial Thromboplastin Time 30.2 sec (23.6-33.0)
[2021-11-17 12:45] LABS: Albumin 2.9 g/dL (3.4-5.0); Calcium 8.3 mg/dL (8.5-10.1); Magnesium 2.8 mg/dL (1.6-2.6); Potassium 4.7 mmol/L (3.5-5.1); Uric Acid 6.2 mg/dL (2.6-6.0)
[2021-11-17] MEDS ORDERED: AMIODARONE HCL 150 MG in D5W 5% 100 ML IV ONE (13:00)
[2021-11-17] MEDS ORDERED: AMIODARONE 450mg/250ml AE 250 ML IV SCH (13:00)
[2021-11-17 13:03] LABS: BUN/Creatinine Ratio 11.3; Bilirubin, Total 2.1 mg/dL (0.2-1.0); Phosphorus 4.9 mg/dL (2.5-4.90); Total Protein 7.6 g/dL (6.4-8.2)
[2021-11-17] MEDS: ENOXAPARIN SOD 100 MG/1 ML SYRINGE SC SCH (13:12)
[2021-11-17 15:55] LABS: Urine Bacteria NONE SEEN /hpf (None Seen); Urine Blood 2+ /uL (Negative); Urine Hyaline Cast FEW /lpf (0 - 2); Urine Mucus FEW (None Seen); Urine Specific Gravity 1.041 (1.001-1.035); Urine WBC 22 /hpf (0 - 5)
[2021-11-17 16:10] LABS: Alcohol, Urine < 3.0 mg/dL (0-10); Amphetamine Screen, Urine NEGATIVE (NEGATIVE); Barbiturate Scree,Urine NEGATIVE (NEGATIVE); Benzodiazephine Screen, Urine NEGATIVE (NEGATIVE); Cannabinoid Screen, Urine POSITIVE (NEGATIVE); Cocaine Screen, Urine NEGATIVE (NEGATIVE); Opiate Scree,Urine POSITIVE (NEGATIVE); Phencyclidine Screen, Urine NEGATIVE (NEGATIVE)
[2021-11-17] MEDS ORDERED: cefTRIAXone 1GM/50ML D5W 50 ML IV SCH (17:00)
[2021-11-17] MEDS: FUROSEMIDE 40 MG/4 ML VIAL IV SCH (18:31)
[2021-11-17] MEDS: cefTRIAXone 1GM/50ML D5W 50 ML IV SCH (21:26)
[2021-11-17] MEDS: QUEtiapine FUMARATE 100 MG TAB PO SCH (22:00)
[2021-11-17] MEDS: AZITHROMYCIN 500MG/ 250ML 250 ML IV SCH (22:15)
[2021-11-17] MEDS: ATORVASTATIN 20 MG TAB PO SCH (22:16)
[2021-11-17] MEDS: AMITRIPTYLINE HCL 25 MG TAB PO SCH (22:16)
[2021-11-18] MEDS: ENOXAPARIN SOD 100 MG/1 ML SYRINGE SC SCH ×3 (01:51→23:54)
[2021-11-18 02:13] LABS: Urine Bacteria NONE SEEN /hpf (None Seen); Urine Blood 2+ /uL (Negative); Urine Hyaline Cast FEW /lpf (0 - 2); Urine Specific Gravity 1.012 (1.001-1.035); Urine WBC 16 /hpf (0 - 5)
[2021-11-18 03:00] LABS: Protein, Urine 85.8 mg/dL (0.0-11.9)
[2021-11-18] MEDS: BUDESONIDE (INHALATION) 0.5 MG/2 ML NEB NEB SCH ×2 (06:11→22:24)
[2021-11-18] MEDS: IPRATROPIUM BROM 0.5 MG/2.5ML INH SOL NEB SCH ×5 (06:11→22:23)
[2021-11-18] MEDS: FUROSEMIDE 40 MG/4 ML VIAL IV SCH ×2 (06:19→18:32)
[2021-11-18] MEDS: methylPREDNISolone SOD SUCC 40 MG/ML VL IV SCH ×2 (06:20→14:02)
[2021-11-18] MEDS: ACCU-CHEK COMFORT CURVE STRIP VI SCH ×4 (06:42→23:44)
[2021-11-18] MEDS: InsuLIN REG 1unit/0.01ml Soln (100units/ml) SC SCH ×4 (06:45→23:47)
[2021-11-18 08:21] LABS: BUN/Creatinine Ratio 19.3; Calcium 8.8 mg/dL (8.5-10.1); Phosphorus 3.3 mg/dL (2.5-4.90); Potassium 4.3 mmol/L (3.5-5.1)
[2021-11-18] MEDS: FAMOTIDINE (10MG/ML) 2ML VL IV SCH ×2 (09:57→23:55)
[2021-11-18] MEDS: BENAZEPRIL HCL 10 MG TAB PO SCH (09:58)
[2021-11-18] MEDS: AMIODARONE HCL 200 MG TAB PO SCH ×2 (09:58→23:46)
[2021-11-18] MEDS: ASPirin 81 mg TAB PO SCH (09:58)
[2021-11-18] MEDS: METOPROLOL SUCCINATE XL 50 MG TAB PO SCH (09:58)
[2021-11-18] MEDS: NIFEdipine ER 30 MG TAB PO SCH (09:58)
[2021-11-18] MEDS: AMIODARONE 450mg/250ml AE 250 ML IV SCH (14:03)
[2021-11-18] MEDS ORDERED: METOPROLOL SUCCINATE XL 50 MG TAB PO ONE (14:45)
[2021-11-18] MEDS: MORPHINE SULFATE INJECTION 2 MG/ML SYRG IV PRN ×2 (15:19→20:19)
[2021-11-18 21:40] VITALS: BP 123/77
[2021-11-18 22:00] VITALS: BP 123/77
[2021-11-18] MEDS ORDERED: METOPROLOL SUCCINATE XL 50 MG TAB PO SCH (22:00)
[2021-11-18] MEDS: QUEtiapine FUMARATE 100 MG TAB PO SCH (22:00)
[2021-11-18] MEDS: AMITRIPTYLINE HCL 25 MG TAB PO SCH (23:45)
[2021-11-18] MEDS: ATORVASTATIN 20 MG TAB PO SCH (23:45)
[2021-11-19] MEDS: cefTRIAXone 1GM/50ML D5W 50 ML IV SCH ×2 (00:31→22:42)
[2021-11-19] MEDS ORDERED: ASPI-543 PO (01:59)
[2021-11-19] MEDS ORDERED: BENA40TA PO (02:02)
[2021-11-19] MEDS ORDERED: METO-158 PO (02:06)
[2021-11-19] MEDS: AZITHROMYCIN 500MG/ 250ML 250 ML IV SCH ×2 (02:10→23:16)
[2021-11-19] MEDS: MORPHINE SULFATE INJECTION 2 MG/ML SYRG IV PRN (02:31)
[2021-11-19] MEDS: dilTIAZem HCL 60 MG TAB PO SCH ×3 (06:00→22:43)
[2021-11-19] MEDS: IPRATROPIUM BROM 0.5 MG/2.5ML INH SOL NEB SCH ×5 (06:00→22:23)
[2021-11-19] MEDS: FUROSEMIDE 40 MG/4 ML VIAL IV SCH ×2 (06:37→18:00)
[2021-11-19] MEDS: methylPREDNISolone SOD SUCC 40 MG/ML VL IV SCH ×2 (06:37→22:50)
[2021-11-19] MEDS: ACCU-CHEK COMFORT CURVE STRIP VI SCH ×4 (06:38→22:44)
[2021-11-19] MEDS: InsuLIN REG 1unit/0.01ml Soln (100units/ml) SC SCH ×4 (06:43→22:51)
[2021-11-19 08:00] VITALS: BP 116/60
[2021-11-19 08:15] VITALS: BP 116/70
[2021-11-19 08:41] LABS: Calcium 9.1 mg/dL (8.5-10.1); Potassium 4.6 mmol/L (3.5-5.1)
[2021-11-19 08:43] LABS: BUN/Creatinine Ratio 25.2
[2021-11-19] MEDS: BUDESONIDE (INHALATION) 0.5 MG/2 ML NEB NEB SCH ×2 (09:22→18:40)
[2021-11-19] MEDS: FAMOTIDINE (10MG/ML) 2ML VL IV SCH ×2 (10:00→22:42)
[2021-11-19] MEDS: BENAZEPRIL HCL 10 MG TAB PO SCH (10:00)
[2021-11-19] MEDS: AMIODARONE HCL 200 MG TAB PO SCH ×2 (10:00→22:43)
[2021-11-19] MEDS: METOPROLOL SUCCINATE XL 50 MG TAB PO SCH (10:00)
[2021-11-19] MEDS: ASPirin 81 mg TAB PO SCH (10:00)
[2021-11-19] MEDS: AMIODARONE 450mg/250ml AE 250 ML IV SCH (10:45)
[2021-11-19 13:00] VITALS: BP 104/73
[2021-11-19] MEDS: ENOXAPARIN SOD 100 MG/1 ML SYRINGE SC SCH ×2 (13:12→22:00)
[2021-11-19 22:00] VITALS: BP 108/79
[2021-11-19] MEDS: QUEtiapine FUMARATE 100 MG TAB PO SCH (22:00)
[2021-11-19] MEDS: AMITRIPTYLINE HCL 25 MG TAB PO SCH (22:44)
[2021-11-19] MEDS: ATORVASTATIN 20 MG TAB PO SCH (22:44)
[2021-11-20] VITALS (15 sets, daily range): BP systolic 88–131; BP diastolic 56–83
[2021-11-20] MEDS: IPRATROPIUM BROM 0.5 MG/2.5ML INH SOL NEB SCH ×6 (05:35→23:18)
[2021-11-20] MEDS: BUDESONIDE (INHALATION) 0.5 MG/2 ML NEB NEB SCH ×3 (05:35→19:05)
[2021-11-20] MEDS: AMIODARONE 450mg/250ml AE 250 ML IV SCH ×2 (05:40→15:52)
[2021-11-20] MEDS: dilTIAZem HCL 60 MG TAB PO SCH ×3 (06:00→22:56)
[2021-11-20] MEDS: FUROSEMIDE 40 MG/4 ML VIAL IV SCH ×2 (06:00→17:47)
[2021-11-20] MEDS: methylPREDNISolone SOD SUCC 40 MG/ML VL IV SCH ×2 (06:26→17:37)
[2021-11-20] MEDS: ACCU-CHEK COMFORT CURVE STRIP VI SCH ×4 (06:33→23:00)
[2021-11-20] MEDS: InsuLIN REG 1unit/0.01ml Soln (100units/ml) SC SCH ×5 (06:34→23:02)
[2021-11-20] MEDS ORDERED: fentaNYL CITRATE 100 MCG/2 ML VL IV ONE (07:45)
[2021-11-20] MEDS ORDERED: LIDOCAINE VISCOUS 2% 15ML UD MT ONE (07:45)
[2021-11-20] MEDS ORDERED: MIDAZOLAM HCL 2MG/2ML 2ml VIAL (1mg/ml) IV ONE (07:45)
[2021-11-20 09:39] LABS: Basophils # (auto) 0 10 ^3/uL (0-0.2); Basophils % (auto) 0.2 % (0.0-2.0); Eosinophils # (auto) 0 10 ^3/uL (0-0.8)
[2021-11-20 09:42] LABS: Hematocrit 37.5 % (36.0-46.0); Hemoglobin 11.9 g/dL (12.2-16.2); Lymphocytes # (auto) 0.9 10 ^3/uL (0.4-5.4); Lymphocytes % (auto) 6.8 % (10.0-50.0); Mean Corpuscular Hemoglobin 23.9 pg (28.0-32.0); Mean Corpuscular Hgb Conc. 31.6 g/dL (32.0-36.0); Monocytes # (auto) 1.2 10 ^3/uL (0-1.3); Monocytes % (auto) 9.9 % (0.0-12.0); Neutrophils # (auto) 10.5 10 ^3/uL (1.6-8.6); Neutrophils % (auto) 83.1 % (37.0-80.0); Nucleated Red Blood Cells % 1.4 %; Red Blood Cells 4.96 10^6/uL (4.0-5.20); White Blood Cell 12.6 10^3/uL (4.4-10.8)
[2021-11-20 09:43] LABS: Mean Corpuscular Volume 75.7 fL (80.0-100.0)
[2021-11-20 09:44] LABS: Red Cell Distribution Width 17.7 % (11.8-14.3)
[2021-11-20 09:53] LABS: Potassium 5.4 mmol/L (3.5-5.1)
[2021-11-20 09:59] LABS: BUN/Creatinine Ratio 22.5; Calcium 8.9 mg/dL (8.5-10.1)
[2021-11-20] MEDS ORDERED: ALBUMIN 25% 100 ML IV ONE (11:15)
[2021-11-20] MEDS: AMIODARONE HCL 200 MG TAB PO SCH ×2 (12:27→22:57)
[2021-11-20] MEDS: ASPirin 81 mg TAB PO SCH (12:27)
[2021-11-20] MEDS: ENOXAPARIN SOD 100 MG/1 ML SYRINGE SC SCH ×2 (12:28→23:00)
[2021-11-20] MEDS: METOPROLOL SUCCINATE XL 50 MG TAB PO SCH (12:28)
[2021-11-20] MEDS: FAMOTIDINE (10MG/ML) 2ML VL IV SCH ×2 (12:30→22:58)
[2021-11-20] MEDS: HYDROcodone-ACET 5/325MG TAB PO PRN ×2 (15:51→23:13)
[2021-11-20] MEDS: ATORVASTATIN 20 MG TAB PO SCH (22:54)
[2021-11-20] MEDS: AZITHROMYCIN 500MG/ 250ML 250 ML IV SCH (22:57)
[2021-11-20] MEDS: cefTRIAXone 1GM/50ML D5W 50 ML IV SCH (22:57)
[2021-11-20] MEDS: AMITRIPTYLINE HCL 25 MG TAB PO SCH (23:00)
[2021-11-20] MEDS: QUEtiapine FUMARATE 100 MG TAB PO SCH (23:00)
[2021-11-21 05:28] VITALS: BP 118/70
[2021-11-21] MEDS: FUROSEMIDE 40 MG/4 ML VIAL IV SCH (05:28)
[2021-11-21] MEDS: methylPREDNISolone SOD SUCC 40 MG/ML VL IV SCH ×2 (05:29→17:47)
[2021-11-21] MEDS: HYDROcodone-ACET 5/325MG TAB PO PRN ×2 (05:30→15:20)
[2021-11-21] MEDS: dilTIAZem HCL 60 MG TAB PO SCH (05:48)
[2021-11-21] MEDS: IPRATROPIUM BROM 0.5 MG/2.5ML INH SOL NEB SCH ×5 (06:56→22:55)
[2021-11-21] MEDS: BUDESONIDE (INHALATION) 0.5 MG/2 ML NEB NEB SCH (06:56)
[2021-11-21] MEDS: ACCU-CHEK COMFORT CURVE STRIP VI SCH ×4 (07:07→22:00)
[2021-11-21] MEDS: AMIODARONE 450mg/250ml AE 250 ML IV SCH (07:07)
[2021-11-21] MEDS: InsuLIN REG 1unit/0.01ml Soln (100units/ml) SC SCH ×5 (07:18→23:09)
[2021-11-21 07:56] LABS: BUN/Creatinine Ratio 24.1; Calcium 8.9 mg/dL (8.5-10.1); Potassium 4.8 mmol/L (3.5-5.1)
[2021-11-21 08:00] VITALS: BP 118/70
[2021-11-21 09:00] VITALS: BP 136/71
[2021-11-21] MEDS: FAMOTIDINE (10MG/ML) 2ML VL IV SCH ×2 (09:03→21:46)
[2021-11-21] MEDS: APIXABAN 5 MG TAB PO SCH ×2 (09:04→21:46)
[2021-11-21] MEDS: AMIODARONE HCL 200 MG TAB PO SCH ×3 (09:04→21:46)
[2021-11-21] MEDS: ASPirin 81 mg TAB PO SCH (09:04)
[2021-11-21] MEDS: METOPROLOL SUCCINATE XL 50 MG TAB PO SCH (09:05)
[2021-11-21 13:00] VITALS: BP 144/74
[2021-11-21] MEDS ORDERED: SODIUM CHLORIDE 0.9% 500 ML IV ONE (14:00)
[2021-11-21 17:00] VITALS: BP 129/70
[2021-11-21] MEDS: ATORVASTATIN 20 MG TAB PO SCH (21:44)
[2021-11-21] MEDS: cefTRIAXone 1GM/50ML D5W 50 ML IV SCH (21:47)
[2021-11-21] MEDS: AMITRIPTYLINE HCL 25 MG TAB PO SCH (21:47)
[2021-11-21] MEDS: QUEtiapine FUMARATE 100 MG TAB PO SCH (22:00)
[2021-11-21 22:15] VITALS: BP 119/74
[2021-11-22 00:20] VITALS: BP 128/75
[2021-11-22] MEDS: AZITHROMYCIN 500MG/ 250ML 250 ML IV SCH ×2 (00:41→21:02)
[2021-11-22] MEDS: BUDESONIDE (INHALATION) 0.5 MG/2 ML NEB NEB SCH ×2 (00:50→19:57)
[2021-11-22 05:00] VITALS: BP 101/58
[2021-11-22] MEDS: methylPREDNISolone SOD SUCC 40 MG/ML VL IV SCH ×2 (06:40→17:45)
[2021-11-22] MEDS: InsuLIN REG 1unit/0.01ml Soln (100units/ml) SC SCH ×4 (06:41→21:30)
[2021-11-22 08:00] VITALS: BP 143/76
[2021-11-22] MEDS: ACCU-CHEK COMFORT CURVE STRIP VI SCH ×4 (08:31→21:29)
[2021-11-22 10:21] LABS: BUN/Creatinine Ratio 28.7; Potassium 4.6 mmol/L (3.5-5.1)
[2021-11-22] MEDS: METOPROLOL SUCCINATE XL 50 MG TAB PO SCH (10:28)
[2021-11-22] MEDS: AMIODARONE HCL 200 MG TAB PO SCH ×2 (10:31→21:03)
[2021-11-22] MEDS: HYDROcodone-ACET 5/325MG TAB PO PRN (10:32)
[2021-11-22] MEDS: FAMOTIDINE (10MG/ML) 2ML VL IV SCH (10:38)
[2021-11-22] MEDS: APIXABAN 5 MG TAB PO SCH ×2 (10:46→21:03)
[2021-11-22 11:39] LABS: Urine Bacteria FEW /hpf (None Seen); Urine Blood TRACE /uL (Negative); Urine Specific Gravity 1.011 (1.001-1.035); Urine WBC 11 /hpf (0 - 5)
[2021-11-22 11:45] LABS: Basophils # (auto) 0 10 ^3/uL (0-0.2); Basophils % (auto) 0.3 % (0.0-2.0); Eosinophils # (auto) 0.1 10 ^3/uL (0-0.8); Eosinophils % (auto) 0.9 % (0.0-7.0); Hematocrit 35.6 % (36.0-46.0); Hemoglobin 11.4 g/dL (12.2-16.2); Lymphocytes # (auto) 0.3 10 ^3/uL (0.4-5.4); Lymphocytes % (auto) 3.2 % (10.0-50.0); Mean Corpuscular Hemoglobin 24.1 pg (28.0-32.0); Mean Corpuscular Volume 75.3 fL (80.0-100.0); Monocytes # (auto) 0.9 10 ^3/uL (0-1.3); Monocytes % (auto) 9.5 % (0.0-12.0); Neutrophils # (auto) 8.1 10 ^3/uL (1.6-8.6); Neutrophils % (auto) 86.1 % (37.0-80.0); Nucleated Red Blood Cells % 0.8 %; Red Blood Cells 4.73 10^6/uL (4.0-5.20); Red Cell Distribution Width 17.9 % (11.8-14.3); White Blood Cell 9.4 10^3/uL (4.4-10.8)
[2021-11-22 11:51] LABS: Sodium Urine 16 mmol/L (40-220)
[2021-11-22 11:56] LABS: Creatinine, Urine 43 mg/dL (30.0-125.0)
[2021-11-22 13:00] VITALS: BP 149/75
[2021-11-22 17:00] VITALS: BP 151/78
[2021-11-22] MEDS: IPRATROPIUM BROM 0.5 MG/2.5ML INH SOL NEB SCH ×2 (19:57→22:31)
[2021-11-22] MEDS: cefTRIAXone 1GM/50ML D5W 50 ML IV SCH (21:02)
[2021-11-22] MEDS: ATORVASTATIN 20 MG TAB PO SCH (21:02)
[2021-11-22] MEDS: AMITRIPTYLINE HCL 25 MG TAB PO SCH (21:03)
[2021-11-22] MEDS: MORPHINE SULFATE INJECTION 2 MG/ML SYRG IV PRN (21:29)
[2021-11-22 22:00] VITALS: BP 153/83
[2021-11-22] MEDS: QUEtiapine FUMARATE 100 MG TAB PO SCH (22:00)
[2021-11-23] VITALS (7 sets, daily range): BP systolic 122–162; BP diastolic 65–83
[2021-11-23] MEDS: methylPREDNISolone SOD SUCC 40 MG/ML VL IV SCH ×2 (05:36→17:59)
[2021-11-23] MEDS: ACCU-CHEK COMFORT CURVE STRIP VI SCH ×4 (06:26→22:27)
[2021-11-23] MEDS: InsuLIN REG 1unit/0.01ml Soln (100units/ml) SC SCH ×4 (06:33→22:46)
[2021-11-23] MEDS: BUDESONIDE (INHALATION) 0.5 MG/2 ML NEB NEB SCH ×2 (07:00→17:36)
[2021-11-23] MEDS: IPRATROPIUM BROM 0.5 MG/2.5ML INH SOL NEB SCH ×5 (07:00→21:35)
[2021-11-23] MEDS: AMIODARONE HCL 200 MG TAB PO SCH ×2 (08:26→22:27)
[2021-11-23] MEDS: FAMOTIDINE (10MG/ML) 2ML VL IV SCH (08:26)
[2021-11-23] MEDS: METOPROLOL SUCCINATE XL 50 MG TAB PO SCH (08:27)
[2021-11-23] MEDS: APIXABAN 5 MG TAB PO SCH ×2 (08:27→22:27)
[2021-11-23] MEDS: HYDROcodone-ACET 5/325MG TAB PO PRN ×3 (08:32→22:29)
[2021-11-23] MEDS: QUEtiapine FUMARATE 100 MG TAB PO SCH (22:00)
[2021-11-23] MEDS: cefTRIAXone 1GM/50ML D5W 50 ML IV SCH (22:26)
[2021-11-23] MEDS: ATORVASTATIN 20 MG TAB PO SCH (22:27)
[2021-11-23] MEDS: AMITRIPTYLINE HCL 25 MG TAB PO SCH (22:27)
[2021-11-23] MEDS: AZITHROMYCIN 500MG/ 250ML 250 ML IV SCH (22:43)
[2021-11-24 05:00] VITALS: BP 144/76
[2021-11-24] MEDS: ACCU-CHEK COMFORT CURVE STRIP VI SCH ×2 (06:14→11:30)
[2021-11-24] MEDS: methylPREDNISolone SOD SUCC 40 MG/ML VL IV SCH (06:14)
[2021-11-24] MEDS: InsuLIN REG 1unit/0.01ml Soln (100units/ml) SC SCH ×2 (06:32→11:30)
[2021-11-24] MEDS: IPRATROPIUM BROM 0.5 MG/2.5ML INH SOL NEB SCH ×3 (07:08→14:32)
[2021-11-24] MEDS: FAMOTIDINE (10MG/ML) 2ML VL IV SCH (10:00)
[2021-11-24] MEDS: APIXABAN 5 MG TAB PO SCH (10:00)
[2021-11-24] MEDS: AMIODARONE HCL 200 MG TAB PO SCH (10:00)
[2021-11-24] MEDS: METOPROLOL SUCCINATE XL 50 MG TAB PO SCH (10:00)
[2021-11-24] MEDS: BUDESONIDE (INHALATION) 0.5 MG/2 ML NEB NEB SCH (10:57)
[2021-11-24 13:39] VITALS: BP 154/77
[2021-11-24] MEDS ORDERED: INSULIN LANTUS (GLARGINE) 1 /0.01ml (100units/ml) SC SCH (22:00)
== END 2021-11-24 15:15 | disposition home health service (06) | DRG 280 ==
LOC: EDUNIT# 10:37 → EDBD 10:37 → ER 10:37 → TELE 14:51 → TELE-CENTR 11-18 21:40 → TELE-WESTW 11-22 00:18
PROVIDERS: ADMIT Hospitalist; ATTEND Hospitalist
PROC: B24BZZ4 Ultrasonography of Heart with Aorta, Transesophageal (ICD-10-PCS; principal; 2021-11-20)
DX: I11.0 Hypertensive heart disease with heart failure (principal); I50.43 Acute on chronic combined systolic (congestive) and diastolic (congestive) heart failure; I21.4 Non-ST elevation (NSTEMI) myocardial infarction; J18.9 Pneumonia, unspecified organism; J96.20 Acute and chronic respiratory failure, unspecified whether with hypoxia or hypercapnia; J44.0 Chronic obstructive pulmonary disease with (acute) lower respiratory infection; I47.1 Supraventricular tachycardia; J45.901 Unspecified asthma with (acute) exacerbation; J98.11 Atelectasis; J44.1 Chronic obstructive pulmonary disease with (acute) exacerbation; I48.92 Unspecified atrial flutter; N17.9 Acute kidney failure, unspecified; Z68.42 Body mass index [BMI] 45.0-49.9, adult; I42.9 Cardiomyopathy, unspecified; E11.21 Type 2 diabetes mellitus with diabetic nephropathy; E66.01 Morbid (severe) obesity due to excess calories; E78.5 Hyperlipidemia, unspecified; F17.210 Nicotine dependence, cigarettes, uncomplicated; Z20.822 Contact with and (suspected) exposure to COVID-19; I27.21 Secondary pulmonary arterial hypertension; I48.91 Unspecified atrial fibrillation; K21.9 Gastro-esophageal reflux disease without esophagitis; F32.9 Major depressive disorder, single episode, unspecified; I50.82 Biventricular heart failure; N14.1 Nephropathy induced by other drugs, medicaments and biological substances; I08.2 Rheumatic disorders of both aortic and tricuspid valves; E11.40 Type 2 diabetes mellitus with diabetic neuropathy, unspecified; T50.8X5A Adverse effect of diagnostic agents, initial encounter; Y92.89 Other specified places as the place of occurrence of the external cause; Z88.5 Allergy status to narcotic agent; Z79.01 Long term (current) use of anticoagulants; Z79.82 Long term (current) use of aspirin; Z82.3 Family history of stroke; Z82.49 Family history of ischemic heart disease and other diseases of the circulatory system; Z90.49 Acquired absence of other specified parts of digestive tract; Z91.14 Patient's other noncompliance with medication regimen
CPT/HCPCS: 36415; 71045; 71275; 76775; 80048; 80053; 80307; 81001; 82306; 82570; 82607; 82962; 83036; 83735; 83880; 83935; 84100; 84156; 84300; 84443; 84484; 84550; 85025; 85379; 85610; 85730; 87040; 87081; 87086; 87426; 93005; 93312; 93970; 94640; 96365; 96366; 96375; 99152; 99291; G0378; J0696; J1815; J2250; J2405; J3490; J7060; P9047

== ENCOUNTER 2022-07-15 17:40 | Emergency (ER) | payer OTHER, MEDICAID ==
[~2022-07-15] VITALS: Ht 157.5 cm; Wt 113.6 kg
[2022-07-15 17:40] VITALS: BP 163/77
[~2022-07-15 17:40] MED LIST changes: -ALBUAER3 IN; +ASPI-543 PO; -ASPI325T4 PO; -DOX100T PO; -MET50T PO; -PRED20TA2 PO
== END 2022-07-15 22:06 | disposition home or self-care (01) ==
LOC: ER 17:45
DX: H61.21 Impacted cerumen, right ear (principal); I11.0 Hypertensive heart disease with heart failure; I50.9 Heart failure, unspecified; J44.9 Chronic obstructive pulmonary disease, unspecified; F17.210 Nicotine dependence, cigarettes, uncomplicated; Z90.49 Acquired absence of other specified parts of digestive tract; Z88.6 Allergy status to analgesic agent

== ENCOUNTER 2023-01-05 10:57 | Inpatient (IN) | payer OTHER, MEDICAID ==
[~2023-01-05] VITALS: Ht 157.5 cm; Wt 119.4 kg
[2023-01-05 12:00] LABS: Eosinophils # (auto) 0.1 10 ^3/uL (0-0.8); Eosinophils % (auto) 1.1 % (0.0-7.0); Hemoglobin 14.7 g/dL (12.2-16.2); Lymphocytes # (auto) 1.7 10 ^3/uL (0.4-5.4)
[2023-01-05 12:02] LABS: Basophils # (auto) 0 10 ^3/uL (0-0.2); Basophils % (auto) 0.7 % (0.0-2.0); Lymphocytes % (auto) 23.6 % (10.0-50.0); Mean Corpuscular Hemoglobin 25.5 pg (28.0-32.0); Mean Corpuscular Hgb Conc. 31.4 g/dL (32.0-36.0); Mean Corpuscular Volume 81.2 fL (80.0-100.0); Monocytes # (auto) 0.6 10 ^3/uL (0-1.3); Monocytes % (auto) 9.2 % (0.0-12.0); Neutrophils # (auto) 4.6 10 ^3/uL (1.6-8.6); Neutrophils % (auto) 65.4 % (37.0-80.0); Nucleated Red Blood Cells % 0.4 %; Red Blood Cells 5.79 10^6/uL (4.0-5.20); Red Cell Distribution Width 18.7 % (11.8-14.3); White Blood Cell 7.1 10^3/uL (4.4-10.8)
[2023-01-05] MEDS ORDERED: IPRATROPIUM BROM 0.5 MG/2.5ML INH SOL NEB ONE (12:30)
[2023-01-05] MEDS ORDERED: FUROSEMIDE 100 MG/10ML VIAL IV ONE (12:30)
[2023-01-05] MEDS ORDERED: ALBUTEROL SULF 2.5 MG/0.5ML(0.5%) NEB SOLN NEB ONE (12:30)
[2023-01-05] MEDS ORDERED: DexAMETHasone SOD PHOS 10MG/1ML VIAL INJ IV ONE (12:30)
[2023-01-05] MEDS ORDERED: ASPirin 81 mg TAB PO ONE (13:30)
[2023-01-05 15:54] LABS: Blood Urea Nitrogen 12 mg/dL (7-18); Chloride 108 mmol/L (98-107); Glucose 122 mg/dL (74-106); Potassium 4.4 mmol/L (3.5-5.1); Sodium 141 mmol/L (136-145)
[2023-01-05 15:55] LABS: Alanine Aminotransferase 29 U/L (13-56); Albumin 2.9 g/dL (3.4-5.0); Alkaline Phosphatase 107 U/L (45-117); Aspartate Aminotransferase 43 U/L (15-37); BUN/Creatinine Ratio 11.7; Bilirubin, Total 1.8 mg/dL (0.2-1.0); Calcium 8.7 mg/dL (8.5-10.1); GFR African American 70 mL/min; GFR Non-African American 58 mL/min
[2023-01-05 15:57] LABS: Anion Gap 14 (5-15); Carbon Dioxide 19 mmol/L (21-32)
[2023-01-05] MEDS ORDERED: ONDANSETRON HCL 4 MG/2 ML VIAL IV PRN (16:15)
[2023-01-05] MEDS ORDERED: LORazepam 0.5 MG TAB PO PRN (16:15)
[2023-01-05] MEDS ORDERED: NITROGLYCERIN 0.4 MG SL TAB SL PRN (16:15)
[2023-01-05] MEDS ORDERED: ZOLPIDEM TARTRATE 5 MG TAB PO PRN (16:15)
[2023-01-05] MEDS: MAGNESIUM SULFATE 1GM/100ML 100 ML IV SCH ×4 (17:57→19:03)
[2023-01-05] MEDS: ACETAMINOPHEN 325 MG TAB PO PRN (20:17)
[2023-01-05] MEDS: ATORVASTATIN 20 MG TAB PO SCH (22:21)
[2023-01-05] MEDS: METOPROLOL TARTRATE 25 MG TAB PO SCH (22:22)
[2023-01-05] MEDS: ENOXAPARIN SOD 100 MG/1 ML SYRINGE SC SCH (22:22)
[2023-01-05] MEDS ORDERED: IPRATROPIUM BROM 0.5 MG/2.5ML INH SOL ONE (22:23)
[2023-01-05] MEDS ORDERED: ALBUTEROL MEDNEB 2.5 mg/3ml NEB ONE (22:23)
[2023-01-05] MEDS: ALBUTEROL SULF 2.5 MG/0.5ML(0.5%) NEB SOLN NEB PRN (22:54)
[2023-01-05] MEDS: IPRATROPIUM BROM 0.5 MG/2.5ML INH SOL NEB PRN (22:55)
[2023-01-05 23:11] VITALS: BP 169/128
[2023-01-06] MEDS ORDERED: CARVEDILOL 3.125 MG TAB PO ONE (04:45)
[2023-01-06 05:01] LABS: Basophils # (auto) 0 10 ^3/uL (0-0.2); Eosinophils # (auto) 0 10 ^3/uL (0-0.8); Eosinophils % (auto) 0.1 % (0.0-7.0); Lymphocytes # (auto) 0.7 10 ^3/uL (0.4-5.4); Mean Corpuscular Hgb Conc. 30.7 g/dL (32.0-36.0); Monocytes # (auto) 0.3 10 ^3/uL (0-1.3); Neutrophils # (auto) 3.6 10 ^3/uL (1.6-8.6)
[2023-01-06 05:04] LABS: Basophils % (auto) 0.3 % (0.0-2.0); Hematocrit 45.5 % (36.0-46.0); Mean Corpuscular Volume 81.5 fL (80.0-100.0); Neutrophils % (auto) 77.6 % (37.0-80.0); Nucleated Red Blood Cells % 0.3 %; Red Blood Cells 5.58 10^6/uL (4.0-5.20); Red Cell Distribution Width 18.3 % (11.8-14.3); White Blood Cell 4.6 10^3/uL (4.4-10.8)
[2023-01-06 05:15] LABS: Calcium 8.9 mg/dL (8.5-10.1); Potassium 3.9 mmol/L (3.5-5.1)
[2023-01-06] MEDS: ACETAMINOPHEN 325 MG TAB PO PRN (08:39)
[2023-01-06] MEDS ORDERED: ASPirin 81 mg TAB PO SCH (10:00)
[2023-01-06] MEDS ORDERED: CLOPIDOGREL BISULFATE 75 MG TAB PO SCH (10:00)
[2023-01-06] MEDS: FUROSEMIDE 100 MG/10ML VIAL IV SCH (11:08)
[2023-01-06] MEDS: CARVEDILOL 3.125 MG TAB PO SCH ×2 (11:09→22:23)
[2023-01-06] MEDS: METOPROLOL TARTRATE 25 MG TAB PO SCH ×3 (11:10→22:23)
[2023-01-06] MEDS: LISINOPRIL 5 MG TAB PO SCH (11:11)
[2023-01-06] MEDS ORDERED: DIGOXIN (250MCG/ML) 2 ML AMPULE IV ONE (12:15)
[2023-01-06] MEDS: AMIODARONE HCL 200 MG TAB PO SCH ×2 (12:33→22:23)
[2023-01-06] MEDS: ENOXAPARIN SOD 100 MG/1 ML SYRINGE SC SCH ×2 (12:34→22:24)
[2023-01-06] MEDS: DOCUSATE SOD 100 MG CAP PO SCH (12:35)
[2023-01-06] MEDS ORDERED: ALBUTEROL MEDNEB 2.5 mg/3ml NEB ONE (20:19)
[2023-01-06] MEDS: IPRATROPIUM BROM 0.5 MG/2.5ML INH SOL NEB PRN (20:25)
[2023-01-06 22:00] VITALS: BP 150/78
[2023-01-06] MEDS: ATORVASTATIN 20 MG TAB PO SCH (22:22)
[2023-01-07 00:44] VITALS: BP 150/78
[2023-01-07 05:00] VITALS: BP 155/88
[2023-01-07 09:00] VITALS: BP 154/101
[2023-01-07] MEDS: ENOXAPARIN SOD 100 MG/1 ML SYRINGE SC SCH (09:05)
[2023-01-07] MEDS: FUROSEMIDE 100 MG/10ML VIAL IV SCH (09:06)
[2023-01-07] MEDS: CARVEDILOL 3.125 MG TAB PO SCH (09:06)
[2023-01-07] MEDS: METOPROLOL TARTRATE 25 MG TAB PO SCH (09:07)
[2023-01-07] MEDS: LISINOPRIL 5 MG TAB PO SCH (09:07)
[2023-01-07] MEDS: DOCUSATE SOD 100 MG CAP PO SCH (09:08)
[2023-01-07] MEDS: AMIODARONE HCL 200 MG TAB PO SCH (09:08)
[2023-01-07 13:00] VITALS: BP 158/98
[2023-01-07] MEDS: ALBUTEROL SULF 2.5 MG/0.5ML(0.5%) NEB SOLN NEB PRN (13:44)
[2023-01-07] MEDS: IPRATROPIUM BROM 0.5 MG/2.5ML INH SOL NEB PRN (13:44)
[2023-01-07 17:00] VITALS: BP 159/98
[2023-01-07] MEDS ORDERED: LISI-275 PO (17:51)
[2023-01-07] MEDS ORDERED: MET25T PO (17:51)
[2023-01-07] MEDS ORDERED: AMIO200T33 PO (17:51)
[2023-01-07 18:19] VITALS: BP 154/101
[2023-01-07] MEDS ORDERED: APIXABAN 5 MG TAB PO SCH (22:00)
== END 2023-01-07 20:43 | disposition home health service (06) | DRG 281 ==
LOC: ER 10:57 → EDBD 10:57 → TELE 16:31 → TELE-EAST 01-06 22:50
PROVIDERS: ADMIT Hospitalist; ATTEND Internal Medicine
DX: I21.4 Non-ST elevation (NSTEMI) myocardial infarction (principal); I13.0 Hypertensive heart and chronic kidney disease with heart failure and stage 1 through stage 4 chronic kidney disease, or unspecified chronic kidney disease; I48.92 Unspecified atrial flutter; J44.1 Chronic obstructive pulmonary disease with (acute) exacerbation; J96.10 Chronic respiratory failure, unspecified whether with hypoxia or hypercapnia; Z68.42 Body mass index [BMI] 45.0-49.9, adult; I50.9 Heart failure, unspecified; Z20.822 Contact with and (suspected) exposure to COVID-19; E11.22 Type 2 diabetes mellitus with diabetic chronic kidney disease; E66.01 Morbid (severe) obesity due to excess calories; E78.5 Hyperlipidemia, unspecified; F17.210 Nicotine dependence, cigarettes, uncomplicated; F32.9 Major depressive disorder, single episode, unspecified; F41.9 Anxiety disorder, unspecified; I48.0 Paroxysmal atrial fibrillation; K21.9 Gastro-esophageal reflux disease without esophagitis; N18.9 Chronic kidney disease, unspecified; Z79.01 Long term (current) use of anticoagulants; Z82.49 Family history of ischemic heart disease and other diseases of the circulatory system; Z86.73 Personal history of transient ischemic attack (TIA), and cerebral infarction without residual deficits; Z99.81 Dependence on supplemental oxygen; Z90.49 Acquired absence of other specified parts of digestive tract; Z88.5 Allergy status to narcotic agent
CPT/HCPCS: 36415; 71045; 80048; 80053; 83880; 84484; 85025; 87426; 93005; 93306; 94640; 94644; 96374; 99291; G0378; J1100

== ENCOUNTER 2023-05-20 10:58 | Inpatient (IN) | payer OTHER, MEDICAID ==
[~2023-05-20] VITALS: Ht 162.6 cm; Wt 98.4 kg
[~2023-05-20 10:58] MED LIST changes: -AML5T PO; +MET25T PO; +SACU1TAB PO; -ZOLP5TAB PO
[2023-05-20] MEDS ORDERED: FUROSEMIDE 40 MG/4 ML VIAL IV ONE (11:15)
[2023-05-20] MEDS ORDERED: dilTIAZem 25 MG/5 ML VIAL IV ONE (11:15)
[2023-05-20] MEDS ORDERED: ADENOSINE 6 MG/2 ML INJ IV ONE (11:30)
[2023-05-20 11:32] LABS: Basophils # (auto) 0.1 10 ^3/uL (0-0.2); Eosinophils # (auto) 0.1 10 ^3/uL (0-0.8); Lymphocytes # (auto) 1.3 10 ^3/uL (0.4-5.4); Monocytes # (auto) 0.5 10 ^3/uL (0-1.3); Neutrophils # (auto) 4.1 10 ^3/uL (1.6-8.6)
[2023-05-20 11:34] LABS: Basophils % (auto) 0.9 % (0.0-2.0); Eosinophils % (auto) 1.1 % (0.0-7.0); Hematocrit 47.5 % (36.0-46.0); Hemoglobin 14.9 g/dL (12.2-16.2); Lymphocytes % (auto) 20.9 % (10.0-50.0); Mean Corpuscular Hemoglobin 25.2 pg (28.0-32.0); Mean Corpuscular Hgb Conc. 31.3 g/dL (32.0-36.0); Mean Corpuscular Volume 80.5 fL (80.0-100.0); Monocytes % (auto) 8.5 % (0.0-12.0); Neutrophils % (auto) 68.6 % (37.0-80.0); Nucleated Red Blood Cells % 0.5 %; Red Blood Cells 5.89 10^6/uL (4.0-5.20); Red Cell Distribution Width 18.6 % (11.8-14.3); White Blood Cell 6.1 10^3/uL (4.4-10.8)
[2023-05-20 12:37] LABS: Potassium 3.6 mmol/L (3.5-5.1)
[2023-05-20] MEDS ORDERED: ACETAMINOPHEN 325 MG TAB PO ONE (12:45)
[2023-05-20 12:48] LABS: Albumin 3.7 g/dL (3.4-5.0); BUN/Creatinine Ratio 9.8 (10.0-20.0); Bilirubin, Total 2.8 mg/dL (0.2-1.0); Calcium 9.2 mg/dL (8.5-10.1); Total Protein 7.6 g/dL (6.4-8.2)
[2023-05-20] MEDS ORDERED: NITROGLYCERIN 0.4 MG SL TAB SL PRN (13:45)
[2023-05-20] MEDS ORDERED: METOPROLOL TARTRATE 1MG/1ML-5ML VIAL IV ONE (13:45)
[2023-05-20] MEDS ORDERED: METOPROLOL TARTRATE 1MG/1ML-5ML VIAL IV PRN (13:45)
[2023-05-20] MEDS ORDERED: MORPHINE SULFATE INJ 2 MG/ml SYRG IV PRN (13:45)
[2023-05-20] MEDS ORDERED: ALBUTEROL SULF 2.5 MG/0.5ML(0.5%) NEB SOLN NEB PRN (13:45)
[2023-05-20 14:38] LABS: Cholesterol 146 mg/dL (< 200); HDL Cholesterol 40 mg/dL (40-59); LDL Cholesterol 101 mg/dL (< 100); Triglycerides 71 mg/dL (< 150)
[2023-05-20] MEDS: IPRATROPIUM BROM 0.5 MG/2.5ML INH SOL NEB SCH ×3 (15:02→22:33)
[2023-05-20] MEDS: ALBUTEROL SULF 2.5 MG/0.5ML(0.5%) NEB SOLN NEB SCH ×3 (15:02→22:33)
[2023-05-20 15:23] VITALS: BP 169/93
[2023-05-20] MEDS ORDERED: SACUBITRIL-VALSARTAN 24mg/26mg TAB PO SCH (17:30)
[2023-05-20 17:52] LABS: Urine Bacteria NONE SEEN /hpf (None Seen); Urine Blood TRACE /uL (Negative); Urine Hyaline Cast FEW /lpf (0 - 2); Urine Specific Gravity 1.005 (1.001-1.035); Urine WBC 9 /hpf (0 - 5)
[2023-05-20] MEDS: SACUBITRIL-VALSARTAN 24mg/26mg TAB PO SCH ×2 (21:28→22:00)
[2023-05-20] MEDS: ACETAMINOPHEN 325 MG TAB PO PRN (21:28)
[2023-05-20] MEDS ORDERED: PATIENTS OWN MEDICATION (Quetiapine Fumerate (Quetiapine Fumarate) 1 TAB) PO SCH (22:00)
[2023-05-20] MEDS: APIXABAN 5 MG TAB PO SCH (22:11)
[2023-05-20] MEDS: QUEtiapine FUMARATE 100 MG TAB PO SCH (22:12)
[2023-05-20] MEDS: cloNIDine HCL 0.1 MG TAB PO SCH (22:12)
[2023-05-20] MEDS: ATORVASTATIN 20 MG TAB PO SCH (22:13)
[2023-05-20] MEDS: METOPROLOL TARTRATE 50 MG TAB PO SCH (22:13)
[2023-05-20] MEDS: PANTOPRAZOLE 40 MG TAB PO SCH (22:13)
[2023-05-20] MEDS: AMIODARONE HCL 200 MG TAB PO SCH (22:13)
[2023-05-20] MEDS: ZOLPIDEM TARTRATE 5 MG TAB PO PRN (23:25)
[2023-05-21] MEDS: IPRATROPIUM BROM 0.5 MG/2.5ML INH SOL NEB SCH ×6 (02:14→22:02)
[2023-05-21] MEDS: ALBUTEROL SULF 2.5 MG/0.5ML(0.5%) NEB SOLN NEB SCH ×6 (02:14→22:02)
[2023-05-21 05:46] LABS: Eosinophils # (auto) 0.2 10 ^3/uL (0-0.8); Hemoglobin 13.3 g/dL (12.2-16.2); Lymphocytes # (auto) 1.3 10 ^3/uL (0.4-5.4); Monocytes # (auto) 0.7 10 ^3/uL (0-1.3); Monocytes % (auto) 10.3 % (0.0-12.0); Nucleated Red Blood Cells % 0.4 %; White Blood Cell 6.6 10^3/uL (4.4-10.8)
[2023-05-21 05:49] LABS: Basophils # (auto) 0 10 ^3/uL (0-0.2); Basophils % (auto) 0.7 % (0.0-2.0); Eosinophils % (auto) 3.3 % (0.0-7.0); Hematocrit 41.4 % (36.0-46.0); Lymphocytes % (auto) 20.3 % (10.0-50.0); Mean Corpuscular Hemoglobin 25.5 pg (28.0-32.0); Mean Corpuscular Volume 79.5 fL (80.0-100.0); Neutrophils # (auto) 4.3 10 ^3/uL (1.6-8.6); Neutrophils % (auto) 65.4 % (37.0-80.0); Red Blood Cells 5.21 10^6/uL (4.0-5.20); Red Cell Distribution Width 18.3 % (11.8-14.3)
[2023-05-21 06:01] LABS: Albumin 3.2 g/dL (3.4-5.0); Calcium 8.4 mg/dL (8.5-10.1); Potassium 3.5 mmol/L (3.5-5.1)
[2023-05-21 06:04] LABS: BUN/Creatinine Ratio 12.3 (10.0-20.0); Bilirubin, Total 1.9 mg/dL (0.2-1.0); Total Protein 6.7 g/dL (6.4-8.2)
[2023-05-21] MEDS ORDERED: ENOXAPARIN SOD 40 MG/0.4 ML SYRINGE SC SCH (10:00)
[2023-05-21] MEDS: ASPirin-EC 81 mg tab PO SCH (10:08)
[2023-05-21] MEDS: NIFEdipine ER 30 MG TAB PO SCH (10:08)
[2023-05-21] MEDS: SACUBITRIL-VALSARTAN 24mg/26mg TAB PO SCH ×2 (10:08→21:36)
[2023-05-21] MEDS: AMIODARONE HCL 200 MG TAB PO SCH ×2 (10:09→21:36)
[2023-05-21] MEDS: PANTOPRAZOLE 40 MG TAB PO SCH ×2 (10:09→22:31)
[2023-05-21] MEDS: APIXABAN 5 MG TAB PO SCH ×2 (10:09→22:31)
[2023-05-21] MEDS: METOPROLOL TARTRATE 50 MG TAB PO SCH ×2 (10:09→22:31)
[2023-05-21] MEDS: FUROSEMIDE 20 MG/2 ML VIAL IV SCH (10:10)
[2023-05-21] MEDS: cloNIDine HCL 0.1 MG TAB PO SCH ×2 (10:10→21:36)
[2023-05-21] MEDS ORDERED: METOPROLOL TARTRATE 1MG/1ML-5ML VIAL IV PRN (14:00)
[2023-05-21] MEDS ORDERED: DIGOXIN (250MCG/ML) 2 ML AMPULE IV ONE (14:00)
[2023-05-21] MEDS: ACETAMINOPHEN 325 MG TAB PO PRN (21:02)
[2023-05-21] MEDS: ATORVASTATIN 20 MG TAB PO SCH (21:36)
[2023-05-21 22:22] LABS: Urine Bacteria NONE SEEN /hpf (None Seen); Urine Blood 3+ /uL (Negative); Urine Specific Gravity 1.013 (1.001-1.035); Urine WBC 87 /hpf (0 - 5)
[2023-05-21] MEDS: QUEtiapine FUMARATE 100 MG TAB PO SCH (22:31)
[2023-05-21] MEDS: ZOLPIDEM TARTRATE 5 MG TAB PO PRN (22:34)
[2023-05-22] VITALS (7 sets, daily range): BP systolic 107–142; BP diastolic 54–91
[2023-05-22] MEDS: IPRATROPIUM BROM 0.5 MG/2.5ML INH SOL NEB SCH ×6 (02:23→23:01)
[2023-05-22] MEDS: ALBUTEROL SULF 2.5 MG/0.5ML(0.5%) NEB SOLN NEB SCH ×6 (02:23→23:01)
[2023-05-22] MEDS: cloNIDine HCL 0.1 MG TAB PO SCH ×2 (10:37→23:01)
[2023-05-22] MEDS: SACUBITRIL-VALSARTAN 24mg/26mg TAB PO SCH ×2 (10:37→21:41)
[2023-05-22] MEDS: ASPirin-EC 81 mg tab PO SCH (10:37)
[2023-05-22] MEDS: APIXABAN 5 MG TAB PO SCH ×2 (10:37→21:43)
[2023-05-22] MEDS: NIFEdipine ER 30 MG TAB PO SCH (10:38)
[2023-05-22] MEDS: AMIODARONE HCL 200 MG TAB PO SCH ×2 (10:38→21:43)
[2023-05-22] MEDS: FUROSEMIDE 20 MG/2 ML VIAL IV SCH (10:38)
[2023-05-22] MEDS: PANTOPRAZOLE 40 MG TAB PO SCH ×2 (10:38→21:43)
[2023-05-22] MEDS: METOPROLOL TARTRATE 50 MG TAB PO SCH ×2 (10:43→23:01)
[2023-05-22] MEDS: ATORVASTATIN 20 MG TAB PO SCH (21:40)
[2023-05-22] MEDS: ACETAMINOPHEN 325 MG TAB PO PRN (21:43)
[2023-05-22] MEDS: QUEtiapine FUMARATE 100 MG TAB PO SCH (22:00)
[2023-05-22] MEDS ORDERED: AMOX875T4 PO (22:29)
[2023-05-23] MEDS: cefTRIAXone 1GM/50ML D5W 50 ML IV SCH ×2 (00:48→09:10)
[2023-05-23] MEDS: ZOLPIDEM TARTRATE 5 MG TAB PO PRN (00:56)
[2023-05-23] MEDS: ALBUTEROL SULF 2.5 MG/0.5ML(0.5%) NEB SOLN NEB SCH ×5 (02:00→19:35)
[2023-05-23] MEDS: IPRATROPIUM BROM 0.5 MG/2.5ML INH SOL NEB SCH ×5 (02:00→19:35)
[2023-05-23 05:00] VITALS: BP 136/61
[2023-05-23 09:40] VITALS: BP 136/61
[2023-05-23 09:45] VITALS: BP 114/58
[2023-05-23] MEDS: SACUBITRIL-VALSARTAN 24mg/26mg TAB PO SCH (10:05)
[2023-05-23] MEDS: FUROSEMIDE 20 MG/2 ML VIAL IV SCH (10:05)
[2023-05-23] MEDS: APIXABAN 5 MG TAB PO SCH (10:06)
[2023-05-23] MEDS: AMIODARONE HCL 200 MG TAB PO SCH (10:06)
[2023-05-23] MEDS: PANTOPRAZOLE 40 MG TAB PO SCH (10:06)
[2023-05-23] MEDS: ASPirin-EC 81 mg tab PO SCH (10:06)
[2023-05-23] MEDS: cloNIDine HCL 0.1 MG TAB PO SCH (10:08)
[2023-05-23] MEDS: METOPROLOL TARTRATE 50 MG TAB PO SCH (10:08)
[2023-05-23] MEDS: NIFEdipine ER 30 MG TAB PO SCH (10:09)
[2023-05-23] MEDS: ACETAMINOPHEN 325 MG TAB PO PRN (13:08)
[2023-05-23 13:29] VITALS: BP 122/73
[2023-05-23 16:31] VITALS: BP 116/75
[2023-05-23 17:32] VITALS: BP 116/75
== END 2023-05-23 20:30 | disposition home health service (06) | DRG 280 ==
LOC: ER 10:58 → EDBD 10:58 → EDUNIT# 10:58 → TELE 13:39 → TELE-EAST 05-21 22:59
PROVIDERS: ADMIT Nurse Practitioner Family; ATTEND Internal Medicine
DX: I21.4 Non-ST elevation (NSTEMI) myocardial infarction (principal); I50.43 Acute on chronic combined systolic (congestive) and diastolic (congestive) heart failure; I48.20 Chronic atrial fibrillation, unspecified; I11.0 Hypertensive heart disease with heart failure; J44.9 Chronic obstructive pulmonary disease, unspecified; E11.9 Type 2 diabetes mellitus without complications; E66.01 Morbid (severe) obesity due to excess calories; Z79.01 Long term (current) use of anticoagulants; R09.02 Hypoxemia; E78.5 Hyperlipidemia, unspecified; F17.210 Nicotine dependence, cigarettes, uncomplicated; Z86.73 Personal history of transient ischemic attack (TIA), and cerebral infarction without residual deficits; Z88.5 Allergy status to narcotic agent; Z90.49 Acquired absence of other specified parts of digestive tract
CPT/HCPCS: 36415; 71045; 80053; 80061; 81001; 83036; 83880; 84443; 84484; 85025; 93005; 93976; 94640; 96374; 96375; 99291; G0378; J0153; J0696

== ENCOUNTER 2023-10-02 16:12 | Inpatient (IN) | payer OTHER, MEDICAID ==
[~2023-10-02] VITALS: Ht 167.6 cm; Wt 81.5 kg
[~2023-10-02 16:12] MED LIST changes: +AMOX875T4 PO
[2023-10-02] MEDS ORDERED: IPRATROPIUM BROM 0.5 MG/2.5ML INH SOL NEB ONE ×3 (17:45→21:00)
[2023-10-02] MEDS ORDERED: ASPirin 81 mg TAB PO ONE ×2 (17:45)
[2023-10-02] MEDS ORDERED: ALBUTEROL MEDNEB 2.5 mg/3ml NEB NEB ONE ×3 (17:45→21:00)
[2023-10-02] MEDS ORDERED: methylPREDNISolone SOD SUCC 125 MG/2 ML VL IV ONE (17:45)
[2023-10-02] MEDS ORDERED: diphenhdrAMINE HCL 25 MG CAP PO ONE (18:00)
[2023-10-02] MEDS ORDERED: ACETAMINOPHEN 325 MG TAB PO ONE (18:00)
[2023-10-02 18:02] LABS: Basophils # (auto) 0 10 ^3/uL (0-0.2); Eosinophils # (auto) 0.1 10 ^3/uL (0-0.8); Lymphocytes # (auto) 1.4 10 ^3/uL (0.4-5.4); Monocytes # (auto) 0.6 10 ^3/uL (0-1.3)
[2023-10-02 18:04] LABS: Basophils % (auto) 0.8 % (0.0-2.0); Hematocrit 41.6 % (36.0-46.0); Lymphocytes % (auto) 24.1 % (10.0-50.0); Mean Corpuscular Hemoglobin 25.9 pg (28.0-32.0); Mean Corpuscular Hgb Conc. 31.3 g/dL (32.0-36.0); Mean Corpuscular Volume 82.9 fL (80.0-100.0); Monocytes % (auto) 10.1 % (0.0-12.0); Neutrophils # (auto) 3.6 10 ^3/uL (1.6-8.6); Nucleated Red Blood Cells % 0.1 %; Red Blood Cells 5.02 10^6/uL (4.0-5.20); Red Cell Distribution Width 18.8 % (11.8-14.3); White Blood Cell 5.8 10^3/uL (4.4-10.8)
[2023-10-02 18:19] LABS: INR 1.25 (0.9-1.15); Partial Thromboplastin Time 27.1 SEC (24.5-34.5); Prothrombin Time 12.9 sec (9.3-11.8)
[2023-10-02 18:23] LABS: Alanine Aminotransferase 16 U/L (7-40); Alkaline Phosphatase 85 U/L (46-116); Anion Gap 9 (5-15); Aspartate Aminotransferase 26 U/L (13-40); BUN/Creatinine Ratio 14.3 (10.0-20.0); Blood Urea Nitrogen 13 mg/dL (9-23); Calcium 9.4 mg/dL (8.7-10.4); Carbon Dioxide 28 mmol/L (20-30); Chloride 105 mmol/L (98-107); Glucose 106 mg/dL (74-106); Potassium 3.8 mmol/L (3.5-5.1); Sodium 142 mmol/L (136-145)
[2023-10-02 18:24] LABS: Bilirubin, Total 2.2 mg/dL (0.2-1.0); Total Protein 6.5 g/dL (5.7-8.2)
[2023-10-02 19:29] LABS: Lactic Acid w/Reflex 2.7 mmol/L (0.4-2.0)
[2023-10-02 19:30] VITALS: PULSE 90; RESP 26; O2SAT 94
[2023-10-02] MEDS ORDERED: hydrALAZINE HCL 20 MG/ML VL IV ONE (20:45)
[2023-10-02] MEDS ORDERED: ALBUTEROL MEDNEB 2.5 mg/3ml NEB ONE (20:55)
[2023-10-02] MEDS ORDERED: IPRATROPIUM BROM 0.5 MG/2.5ML INH SOL ONE (20:55)
[2023-10-02] MEDS ORDERED: IOHEXOL 350 MG/ML 100ML IJ ONE (22:43)
[2023-10-02] MEDS ORDERED: DOCUSATE SOD 100 MG CAP PO PRN (22:45)
[2023-10-02] MEDS ORDERED: FUROSEMIDE 100 MG/10ML VIAL IV ONE (22:45)
[2023-10-02] MEDS ORDERED: MORPHINE SULFATE INJ 2 MG/ml SYRG IV PRN (22:45)
[2023-10-02] MEDS ORDERED: POTA-264 PO (22:45)
[2023-10-02] MEDS ORDERED: DEXTROSE (50%) 50ML SYRG IV PRN (22:45)
[2023-10-02] MEDS ORDERED: ONDANSETRON HCL 4 MG/2 ML VIAL IV PRN (22:45)
[2023-10-02] MEDS ORDERED: LOSA50TA46 PO (22:45)
[2023-10-02] MEDS ORDERED: NITROGLYCERIN 0.4 MG SL TAB SL PRN (22:45)
[2023-10-02] MEDS ORDERED: ACETAMINOPHEN 325 MG TAB PO PRN (22:45)
[2023-10-02] MEDS ORDERED: ENOXAPARIN SOD 40 MG/0.4 ML SYRINGE SC ONE (22:45)
[2023-10-02] MEDS ORDERED: METO-535 PO (22:45)
[2023-10-02] MEDS ORDERED: hydrALAZINE HCL 20 MG/ML VL IV PRN (23:00)
[2023-10-03] VITALS (7 sets, daily range): BP systolic 135–160; BP diastolic 79–86; PULSE 94–138; RESP 18–22; TEMP 97.6–98.1; O2SAT 92–98
[2023-10-03] MEDS ORDERED: CARVEDILOL 12.5 MG TAB PO ONE (04:30)
[2023-10-03] MEDS ORDERED: FUROSEMIDE 20 MG/2 ML VIAL IV SCH (06:00)
[2023-10-03] MEDS ORDERED: methylPREDNISolone SOD SUCC 40 MG/ML VL IV SCH (06:00)
[2023-10-03 06:16] LABS: Alanine Aminotransferase 12 U/L (7-40); Alkaline Phosphatase 87 U/L (46-116); Anion Gap 12 (5-15); Aspartate Aminotransferase 25 U/L (13-40); BUN/Creatinine Ratio 5.8 (10.0-20.0); Bilirubin, Total 1.9 mg/dL (0.2-1.0); Blood Urea Nitrogen 7 mg/dL (9-23); Calcium 9.3 mg/dL (8.7-10.4); Carbon Dioxide 24 mmol/L (20-30); Chloride 103 mmol/L (98-107); Glucose 297 mg/dL (74-106); Potassium 3.6 mmol/L (3.5-5.1); Sodium 139 mmol/L (136-145)
[2023-10-03] MEDS ORDERED: METOPROLOL TARTRATE 1MG/1ML-5ML VIAL IV ONE (06:30)
[2023-10-03] MEDS ORDERED: HYDROmorphone HCL 2 MG/ML VL/or syr IV ONE (06:45)
[2023-10-03] MEDS: InsuLIN REG 1unit/0.01ml Soln (100units/ml) SC SCH ×4 (07:00→23:04)
[2023-10-03] MEDS: ACCU-CHEK COMFORT CURVE STRIP VI SCH ×4 (07:01→23:06)
[2023-10-03 07:37] LABS: Basophils # (auto) 0 10 ^3/uL (0-0.2); Eosinophils # (auto) 0 10 ^3/uL (0-0.8); Hemoglobin 12.7 g/dL (12.2-16.2); Lymphocytes # (auto) 0.4 10 ^3/uL (0.4-5.4); Mean Corpuscular Hemoglobin 25.7 pg (28.0-32.0); Monocytes # (auto) 0.1 10 ^3/uL (0-1.3); Monocytes % (auto) 3.2 % (0.0-12.0); Red Blood Cells 4.93 10^6/uL (4.0-5.20); White Blood Cell 3.5 10^3/uL (4.4-10.8)
[2023-10-03 07:39] LABS: Basophils % (auto) 0.2 % (0.0-2.0); Hematocrit 40.6 % (36.0-46.0); Lymphocytes % (auto) 11.3 % (10.0-50.0); Mean Corpuscular Hgb Conc. 31.2 g/dL (32.0-36.0); Mean Corpuscular Volume 82.2 fL (80.0-100.0); Neutrophils % (auto) 85.3 % (37.0-80.0); Nucleated Red Blood Cells % 0.1 %
[2023-10-03 08:33] LABS: Urine Bacteria FEW /hpf (None Seen); Urine Blood Negative /uL (Negative); Urine Clarity Clear (Clear); Urine Color Colorless (Yellow); Urine Hyaline Cast FEW /lpf (0 - 2); Urine Protein, UAD TRACE (Negative); Urine Specific Gravity 1.014 (1.001-1.035); Urine WBC 3 /hpf (0 - 5)
[2023-10-03] MEDS: POTASSIUM CHL 10 Meq TABLET PO SCH (09:55)
[2023-10-03] MEDS ORDERED: AMIODARONE HCL 200 MG TAB PO SCH (10:00)
[2023-10-03] MEDS ORDERED: PANTOPRAZOLE 40 MG TAB PO SCH (10:00)
[2023-10-03] MEDS ORDERED: ASPirin-EC 81 mg tab PO SCH (10:00)
[2023-10-03] MEDS ORDERED: METOPROLOL TARTRATE 25 MG TAB PO SCH (10:00)
[2023-10-03] MEDS ORDERED: PANTOPRAZOLE 40 MG/10 ML VIAL INJ IV SCH (10:00)
[2023-10-03] MEDS ORDERED: APIXABAN 5 MG TAB PO ONE (10:15)
[2023-10-03] MEDS ORDERED: SACUBITRIL-VALSARTAN 24mg/26mg TAB PO ONE (10:15)
[2023-10-03] MEDS ORDERED: ALBUTEROL MEDNEB 2.5 mg/3ml NEB NEB PRN (11:00)
[2023-10-03] MEDS: levoFLOXacin 500 MG TAB PO SCH (11:40)
[2023-10-03 12:39] LABS: COVID19 ANTIGEN SOFIA FIA NEGATIVE (NEGATIVE)
[2023-10-03 14:54] LABS: Amphetamine Screen, Urine Neg (NEGATIVE); Benzodiazephine Screen, Urine Neg (NEGATIVE)
[2023-10-03 14:55] LABS: Barbiturate Scree,Urine Neg (NEGATIVE); Cannabinoid Screen, Urine Pos (NEGATIVE); Cocaine Screen, Urine Pos (NEGATIVE); Opiate Scree,Urine Neg (NEGATIVE); Phencyclidine Screen, Urine Neg (NEGATIVE)
[2023-10-03] MEDS ORDERED: SACUBITRIL-VALSARTAN 24mg/26mg TAB PO SCH (17:30)
[2023-10-03] MEDS: FUROSEMIDE 20 MG/2 ML VIAL IV SCH (18:37)
[2023-10-03] MEDS ORDERED: ENOXAPARIN SOD 40 MG/0.4 ML SYRINGE SC SCH (22:00)
[2023-10-03] MEDS: methylPREDNISolone SOD SUCC 40 MG/ML VL IV SCH (22:53)
[2023-10-03] MEDS: QUEtiapine FUMARATE 100 MG TAB PO SCH (22:54)
[2023-10-03] MEDS: CARVEDILOL 12.5 MG TAB PO SCH (22:56)
[2023-10-03] MEDS: APIXABAN 5 MG TAB PO SCH (23:06)
[2023-10-03] MEDS: ATORVASTATIN 20 MG TAB PO SCH (23:07)
[2023-10-03] MEDS: SACUBITRIL-VALSARTAN 24mg/26mg TAB PO SCH (23:07)
[2023-10-03] MEDS: PANTOPRAZOLE 40 MG TAB PO SCH (23:07)
[2023-10-03] MEDS ORDERED: dilTIAZem 25 MG/5 ML VIAL IV ONE (23:45)
[2023-10-04] VITALS (10 sets, daily range): BP systolic 137–154; BP diastolic 82–99; PULSE 128–140; RESP 17–20; TEMP 37; O2SAT 90–96
[2023-10-04] MEDS ORDERED: dilTIAZem 25 MG/5 ML VIAL IV ONE (04:15)
[2023-10-04] MEDS: InsuLIN REG 1unit/0.01ml Soln (100units/ml) SC SCH ×4 (06:09→22:00)
[2023-10-04] MEDS: FUROSEMIDE 20 MG/2 ML VIAL IV SCH (06:09)
[2023-10-04] MEDS: EMPAGLIFLOZIN 10 MG TAB PO SCH (06:09)
[2023-10-04] MEDS: ACCU-CHEK COMFORT CURVE STRIP VI SCH ×4 (06:11→22:00)
[2023-10-04] MEDS: POTASSIUM CHL 10 Meq TABLET PO SCH (10:59)
[2023-10-04] MEDS: levoFLOXacin 500 MG TAB PO SCH (10:59)
[2023-10-04] MEDS: SPIRONOLACTONE 25 MG TAB PO SCH (10:59)
[2023-10-04] MEDS: SACUBITRIL-VALSARTAN 24mg/26mg TAB PO SCH ×2 (11:00→22:00)
[2023-10-04] MEDS: PANTOPRAZOLE 40 MG TAB PO SCH ×2 (11:00→22:00)
[2023-10-04] MEDS: APIXABAN 5 MG TAB PO SCH ×2 (11:03→22:00)
[2023-10-04] MEDS: CARVEDILOL 12.5 MG TAB PO SCH ×2 (11:03→22:00)
[2023-10-04] MEDS: methylPREDNISolone SOD SUCC 40 MG/ML VL IV SCH ×2 (11:04→22:00)
[2023-10-04] MEDS ORDERED: POTASSIUM CHL 20 Meq TABLET PO ONE (12:30)
[2023-10-04] MEDS ORDERED: CARVEDILOL 12.5 MG TAB PO ONE (13:15)
[2023-10-04] MEDS ORDERED: SPIR25TA PO (13:26)
[2023-10-04] MEDS ORDERED: CAR125T PO (13:26)
[2023-10-04] MEDS ORDERED: PRED20TA2 PO (13:26)
[2023-10-04] MEDS ORDERED: AMOX875T4 PO (13:26)
[2023-10-04 13:58] LABS: Basophils # (auto) 0 10 ^3/uL (0-0.2); Eosinophils # (auto) 0 10 ^3/uL (0-0.8); Hemoglobin 13.4 g/dL (12.2-16.2); Lymphocytes # (auto) 0.5 10 ^3/uL (0.4-5.4); Monocytes # (auto) 0.4 10 ^3/uL (0-1.3); Nucleated Red Blood Cells % 0.1 %
[2023-10-04 14:00] LABS: Hematocrit 42.2 % (36.0-46.0); Mean Corpuscular Hemoglobin 25.7 pg (28.0-32.0); Mean Corpuscular Hgb Conc. 31.6 g/dL (32.0-36.0); Mean Corpuscular Volume 81.1 fL (80.0-100.0); Red Blood Cells 5.21 10^6/uL (4.0-5.20); Red Cell Distribution Width 18.3 % (11.8-14.3); White Blood Cell 8.9 10^3/uL (4.4-10.8)
[2023-10-04 14:05] LABS: Chloride 100 mmol/L (98-107); Potassium 3.9 mmol/L (3.5-5.1); Sodium 140 mmol/L (136-145)
[2023-10-04 14:06] LABS: Anion Gap 7 (5-15); Calcium 9.1 mg/dL (8.5-10.1); Carbon Dioxide 33 mmol/L (20-30)
[2023-10-04 14:11] LABS: Glucose 172 mg/dL (74-106)
[2023-10-04 14:12] LABS: BUN/Creatinine Ratio 12.4 (10.0-20.0); Blood Urea Nitrogen 15 mg/dL (9-23)
[2023-10-04] MEDS: FUROSEMIDE 40 MG/4 ML VIAL IV SCH (18:00)
[2023-10-04] MEDS: QUEtiapine FUMARATE 100 MG TAB PO SCH (22:00)
[2023-10-04] MEDS: ATORVASTATIN 20 MG TAB PO SCH (22:00)
[2023-10-05 05:36] LABS: Basophils # (auto) 0 10 ^3/uL (0-0.2); Eosinophils # (auto) 0 10 ^3/uL (0-0.8); Eosinophils % (auto) 0.1 % (0.0-7.0); Hemoglobin 13.7 g/dL (12.2-16.2); Monocytes # (auto) 1.1 10 ^3/uL (0-1.3); Monocytes % (auto) 10.2 % (0.0-12.0)
[2023-10-05] MEDS: FUROSEMIDE 40 MG/4 ML VIAL IV SCH (05:37)
[2023-10-05 05:38] LABS: Basophils % (auto) 0.2 % (0.0-2.0); Lymphocytes # (auto) 1.7 10 ^3/uL (0.4-5.4); Lymphocytes % (auto) 15.6 % (10.0-50.0); Mean Corpuscular Hemoglobin 25.8 pg (28.0-32.0); Mean Corpuscular Hgb Conc. 31.8 g/dL (32.0-36.0); Mean Corpuscular Volume 80.9 fL (80.0-100.0); Neutrophils # (auto) 7.8 10 ^3/uL (1.6-8.6); Neutrophils % (auto) 73.9 % (37.0-80.0); Nucleated Red Blood Cells % 0.1 %; Red Blood Cells 5.31 10^6/uL (4.0-5.20); Red Cell Distribution Width 18.6 % (11.8-14.3); White Blood Cell 10.6 10^3/uL (4.4-10.8)
[2023-10-05 05:53] LABS: Chloride 101 mmol/L (98-107); Potassium 3.7 mmol/L (3.5-5.1); Sodium 140 mmol/L (136-145)
[2023-10-05 05:54] LABS: Anion Gap 7 (5-15); Carbon Dioxide 32 mmol/L (20-30)
[2023-10-05 05:59] LABS: BUN/Creatinine Ratio 16.2 (10.0-20.0); Blood Urea Nitrogen 19 mg/dL (9-23); Glucose 140 mg/dL (74-106)
[2023-10-05] MEDS: EMPAGLIFLOZIN 10 MG TAB PO SCH (06:53)
[2023-10-05] MEDS: InsuLIN REG 1unit/0.01ml Soln (100units/ml) SC SCH ×2 (06:56→11:41)
[2023-10-05] MEDS: ACCU-CHEK COMFORT CURVE STRIP VI SCH ×2 (06:57→11:33)
[2023-10-05 08:00] VITALS: PULSE 141; RESP 24
[2023-10-05] MEDS: POTASSIUM CHL 10 Meq TABLET PO SCH (08:22)
[2023-10-05] MEDS: PANTOPRAZOLE 40 MG TAB PO SCH (08:22)
[2023-10-05] MEDS: levoFLOXacin 500 MG TAB PO SCH (08:23)
[2023-10-05] MEDS: SPIRONOLACTONE 25 MG TAB PO SCH (08:23)
[2023-10-05] MEDS: APIXABAN 5 MG TAB PO SCH (08:23)
[2023-10-05] MEDS: CARVEDILOL 12.5 MG TAB PO SCH ×2 (08:24→09:24)
[2023-10-05] MEDS: SACUBITRIL-VALSARTAN 24mg/26mg TAB PO SCH (08:25)
[2023-10-05] MEDS: methylPREDNISolone SOD SUCC 40 MG/ML VL IV SCH (08:28)
[2023-10-05 10:19] VITALS: BP 138/91; PULSE 142; RESP 18; O2SAT 95
== END 2023-10-05 11:52 | disposition home health service (06) | DRG 280 ==
LOC: EDBD 16:12 → ER 16:12 → TELE 22:40 → TELE-WESTW 10-03 21:55
PROVIDERS: ADMIT Nurse Practitioner Family; ATTEND Internal Medicine
DX: I11.0 Hypertensive heart disease with heart failure (principal); I50.43 Acute on chronic combined systolic (congestive) and diastolic (congestive) heart failure; I21.A1 Myocardial infarction type 2; J96.21 Acute and chronic respiratory failure with hypoxia; J44.1 Chronic obstructive pulmonary disease with (acute) exacerbation; I48.20 Chronic atrial fibrillation, unspecified; I48.92 Unspecified atrial flutter; N17.9 Acute kidney failure, unspecified; N39.0 Urinary tract infection, site not specified; J91.8 Pleural effusion in other conditions classified elsewhere; Z20.822 Contact with and (suspected) exposure to COVID-19; E11.9 Type 2 diabetes mellitus without complications; E78.5 Hyperlipidemia, unspecified; F31.9 Bipolar disorder, unspecified; Z86.73 Personal history of transient ischemic attack (TIA), and cerebral infarction without residual deficits; Z82.49 Family history of ischemic heart disease and other diseases of the circulatory system; Z91.148 Patient's other noncompliance with medication regimen for other reason; Z72.0 Tobacco use
CPT/HCPCS: 36415; 71045; 71275; 76604; 80048; 80053; 80307; 81001; 82962; 83605; 83735; 83880; 84443; 84484; 85025; 85610; 85730; 87040; 87086; 87426; 93005; 93306; 94640; C9113; G0378; J1815; J2405

== ENCOUNTER 2023-10-10 13:06 | Inpatient (IN) | payer OTHER, MEDICAID ==
[~2023-10-10] VITALS: Ht 167.6 cm; Wt 82.0 kg
[~2023-10-10 13:06] MED LIST changes: -AMIO200T33 PO; -AMIT100T75 PO; -ASPI-543 PO; +CAR125T PO; -MET25T PO; +POTA-264 PO; +PRED20TA2 PO; +SPIR25TA PO
[2023-10-10] MEDS ORDERED: methylPREDNISolone SOD SUCC 125 MG/2 ML VL IV ONE (14:00)
[2023-10-10] MEDS ORDERED: BUDESONIDE (INHALATION) 0.5 MG/2 ML NEB NEB ONE (14:00)
[2023-10-10] MEDS ORDERED: ALBUTEROL MEDNEB 2.5 mg/3ml NEB NEB ONE (14:00)
[2023-10-10] MEDS ORDERED: DexAMETHasone SOD PHOS 10MG/1ML VIAL INJ IV ONE (14:00)
[2023-10-10 14:28] VITALS: O2SAT 94
[2023-10-10 14:31] LABS: Alanine Aminotransferase 23 U/L (7-40); Albumin 3.9 g/dL (3.2-4.8); Alkaline Phosphatase 78 U/L (46-116); Anion Gap 8 (5-15); Aspartate Aminotransferase 35 U/L (13-40); BUN/Creatinine Ratio 7.4 (10.0-20.0); Bilirubin, Total 2.2 mg/dL (0.2-1.0); Blood Urea Nitrogen 7 mg/dL (9-23); Calcium 8.7 mg/dL (8.7-10.4); Carbon Dioxide 30 mmol/L (20-30); Chloride 105 mmol/L (98-107); Glucose 115 mg/dL (74-106); Magnesium 1.9 mg/dL (1.6-2.6); Potassium 3.8 mmol/L (3.5-5.1); Sodium 143 mmol/L (136-145); Total Protein 6.7 g/dL (5.7-8.2)
[2023-10-10 14:32] LABS: INR 1.12 (0.9-1.15); Partial Thromboplastin Time 28.5 SEC (24.5-34.5); Prothrombin Time 11.7 sec (9.3-11.8)
[2023-10-10] MEDS ORDERED: IOHEXOL 350 MG/ML 100ML IJ ONE (14:54)
[2023-10-10 14:56] LABS: Basophils # (auto) 0.1 10 ^3/uL (0-0.2); Basophils % (auto) 1.2 % (0.0-2.0); Eosinophils # (auto) 0.1 10 ^3/uL (0-0.8); Eosinophils % (auto) 0.5 % (0.0-7.0); Hematocrit 43.3 % (36.0-46.0); Hemoglobin 13.5 g/dL (12.2-16.2); Lymphocytes # (auto) 0.8 10 ^3/uL (0.4-5.4); Lymphocytes % (auto) 7.6 % (10.0-50.0); Mean Corpuscular Hemoglobin 25.6 pg (28.0-32.0); Mean Corpuscular Hgb Conc. 31.1 g/dL (32.0-36.0); Mean Corpuscular Volume 82.4 fL (80.0-100.0); Monocytes # (auto) 0.9 10 ^3/uL (0-1.3); Monocytes % (auto) 8.2 % (0.0-12.0); Neutrophils # (auto) 8.7 10 ^3/uL (1.6-8.6); Neutrophils % (auto) 82.5 % (37.0-80.0); Nucleated Red Blood Cells % 0.2 %; Red Blood Cells 5.26 10^6/uL (4.0-5.20); Red Cell Distribution Width 18.6 % (11.8-14.3); White Blood Cell 10.5 10^3/uL (4.4-10.8)
[2023-10-10] MEDS ORDERED: ASPirin 325 MG TAB PO ONE (15:00)
[2023-10-10] MEDS ORDERED: FUROSEMIDE 40 MG/4 ML VIAL IV ONE (15:00)
[2023-10-10 15:13] LABS: Base Excess 4.1 mmol/L (-2.0-2.0)
[2023-10-10 15:56] LABS: COVID19 ANTIGEN SOFIA FIA NEGATIVE (NEGATIVE); Rapid Influenza A Negative (Negative); Rapid Influenza B Negative (Negative)
[2023-10-10] MEDS ORDERED: LABETALOL HCL 5 MG/ML 4ML SYRINGE IV ONE (16:30)
[2023-10-10 19:25] VITALS: RESP 14; O2SAT 95
[2023-10-11] VITALS (7 sets, daily range): BP systolic 156–162; BP diastolic 73–98; PULSE 92–137; RESP 18–24; TEMP 98; O2SAT 93–99
[2023-10-11] MEDS ORDERED: hydrALAZINE HCL 20 MG/ML VL IV ONE
[2023-10-11] MEDS ORDERED: ACETAMINOPHEN 500 MG TAB PO ONE
[2023-10-11] MEDS ORDERED: ONDANSETRON HCL 4 MG/2 ML VIAL IV PRN (05:45)
[2023-10-11] MEDS ORDERED: DOCUSATE SOD 100 MG CAP PO PRN (05:45)
[2023-10-11] MEDS ORDERED: ACETAMINOPHEN 325 MG TAB PO PRN (05:45)
[2023-10-11] MEDS ORDERED: METOPROLOL TARTRATE 1MG/1ML-5ML VIAL IV PRN (05:45)
[2023-10-11] MEDS ORDERED: DEXTROSE (50%) 50ML SYRG IV PRN (05:45)
[2023-10-11] MEDS ORDERED: IOHEXOL 350 MG/ML 100ML IJ ONE (06:04)
[2023-10-11] MEDS: IPRATROPIUM BROM 0.5 MG/2.5ML INH SOL NEB SCH ×2 (06:15→11:46)
[2023-10-11] MEDS: ALBUTEROL MEDNEB 2.5 mg/3ml NEB NEB SCH ×2 (06:15→11:46)
[2023-10-11] MEDS: CARVEDILOL 12.5 MG TAB PO SCH ×2 (06:42→09:31)
[2023-10-11] MEDS: ACCU-CHEK COMFORT CURVE STRIP VI SCH ×2 (07:17→11:41)
[2023-10-11] MEDS: InsuLIN REG 1unit/0.01ml Soln (100units/ml) SC SCH ×2 (07:24→11:44)
[2023-10-11] MEDS ORDERED: FUROSEMIDE 20 MG TAB PO SCH (10:00)
[2023-10-11] MEDS ORDERED: PANTOPRAZOLE 40 MG TAB PO SCH (10:00)
[2023-10-11] MEDS ORDERED: SACUBITRIL-VALSARTAN 24mg/26mg TAB PO SCH (10:00)
[2023-10-11] MEDS ORDERED: APIXABAN 5 MG TAB PO SCH (10:00)
[2023-10-11] MEDS ORDERED: SPIRONOLACTONE 25 MG TAB PO SCH (10:00)
[2023-10-11] MEDS ORDERED: ENALAPRILAT 1.25 MG/ML-1ML VIAL IV PRN (11:45)
[2023-10-11] MEDS ORDERED: AML5T PO (13:32)
[2023-10-11] MEDS ORDERED: PRED20TA2 PO ×3 (13:50→13:51)
[2023-10-11] MEDS ORDERED: predniSONE 20 MG TAB PO ONE (14:00)
[2023-10-11] MEDS ORDERED: QUEtiapine FUMARATE 100 MG TAB PO SCH (22:00)
[2023-10-11] MEDS ORDERED: ATORVASTATIN 20 MG TAB PO SCH (22:00)
[2023-10-12] MEDS ORDERED: amLODIPine BESYLATE 5 MG TAB PO SCH (10:00)
== END 2023-10-11 15:40 | disposition home health service (06) | DRG 281 ==
LOC: ER 13:06 → EDBD 13:06 → TELE 10-11 05:39
PROVIDERS: ADMIT Internal Medicine; ATTEND Internal Medicine
DX: I48.20 Chronic atrial fibrillation, unspecified (principal); I21.A1 Myocardial infarction type 2; I50.22 Chronic systolic (congestive) heart failure; J44.1 Chronic obstructive pulmonary disease with (acute) exacerbation; J96.11 Chronic respiratory failure with hypoxia; J90 Pleural effusion, not elsewhere classified; I11.0 Hypertensive heart disease with heart failure; I48.92 Unspecified atrial flutter; I48.91 Unspecified atrial fibrillation; Z20.822 Contact with and (suspected) exposure to COVID-19; E11.9 Type 2 diabetes mellitus without complications; I08.3 Combined rheumatic disorders of mitral, aortic and tricuspid valves; E78.5 Hyperlipidemia, unspecified; F31.9 Bipolar disorder, unspecified; Z79.01 Long term (current) use of anticoagulants; Z82.49 Family history of ischemic heart disease and other diseases of the circulatory system; Z86.73 Personal history of transient ischemic attack (TIA), and cerebral infarction without residual deficits; Z91.199 Patient's noncompliance with other medical treatment and regimen due to unspecified reason; Z72.0 Tobacco use; Z90.49 Acquired absence of other specified parts of digestive tract
CPT/HCPCS: 36415; 36600; 71045; 80053; 82805; 83735; 83880; 84436; 84443; 84481; 84484; 85025; 85379; 85610; 85730; 87426; 87804; 93005; 93970; 94640; 96374; 96375; G0378; J1100; J1815; J3490

== ENCOUNTER 2023-11-02 18:13 | Inpatient (IN) | payer OTHER, MEDICAID ==
[~2023-11-02] VITALS: Ht 162.6 cm; Wt 78.6 kg
[~2023-11-02 18:13] MED LIST changes: +AML5T PO; -AMOX875T4 PO
[2023-11-02 19:07] LABS: Basophils # (auto) 0 10 ^3/uL (0-0.2); Basophils % (auto) 0.5 % (0.0-2.0); Hemoglobin 12.6 g/dL (12.2-16.2); Lymphocytes # (auto) 0.7 10 ^3/uL (0.4-5.4); Monocytes # (auto) 0.5 10 ^3/uL (0-1.3)
[2023-11-02 19:08] LABS: Eosinophils # (auto) 0 10 ^3/uL (0-0.8); Eosinophils % (auto) 0.5 % (0.0-7.0); Hematocrit 40.5 % (36.0-46.0); Lymphocytes % (auto) 8.2 % (10.0-50.0); Mean Corpuscular Hemoglobin 25.4 pg (28.0-32.0); Monocytes % (auto) 5.4 % (0.0-12.0); Neutrophils # (auto) 7.7 10 ^3/uL (1.6-8.6); Neutrophils % (auto) 85.4 % (37.0-80.0); Nucleated Red Blood Cells % 0.2 %; Red Blood Cells 4.94 10^6/uL (4.0-5.20); Red Cell Distribution Width 17.8 % (11.8-14.3)
[2023-11-02 19:22] LABS: Alanine Aminotransferase 24 U/L (7-40); Albumin 4.3 g/dL (3.2-4.8); Alkaline Phosphatase 111 U/L (46-116); Anion Gap 8 (5-15); Aspartate Aminotransferase 35 U/L (13-40); BUN/Creatinine Ratio 22.8 (10.0-20.0); Bilirubin, Total 1.6 mg/dL (0.2-1.0); Blood Urea Nitrogen 21 mg/dL (9-23); Calcium 9.2 mg/dL (8.7-10.4); Carbon Dioxide 26 mmol/L (20-30); Chloride 109 mmol/L (98-107); Glucose 144 mg/dL (74-106); Potassium 5.1 mmol/L (3.5-5.1); Sodium 143 mmol/L (136-145); Total Protein 6.9 g/dL (5.7-8.2)
[2023-11-02 19:52] VITALS: PULSE 93; RESP 22; O2SAT 94
[2023-11-02] MEDS ORDERED: MORPHINE SULFATE 4 MG/ML SYR/VIAL IV ONE (20:45)
[2023-11-02] MEDS ORDERED: ASPirin 81 mg TAB PO ONE (20:45)
[2023-11-02] MEDS ORDERED: ALBUTEROL SULF 2.5 MG/0.5ML(0.5%) NEB SOLN NEB ONE (20:45)
[2023-11-02] MEDS ORDERED: FUROSEMIDE 40 MG/4 ML VIAL IV ONE (20:45)
[2023-11-02] MEDS ORDERED: IPRATROPIUM BROM 0.5 MG/2.5ML INH SOL NEB ONE (20:45)
[2023-11-02] MEDS ORDERED: ONDANSETRON HCL 4 MG/2 ML VIAL IV ONE (20:45)
[2023-11-02] MEDS ORDERED: NITROGLYCERIN 0.4MG/HR TOPICAL PATCH TD ONE (20:45)
[2023-11-02] MEDS ORDERED: IBUPROFEN 600 MG TAB PO ONE (21:00)
[2023-11-02 21:36] LABS: Base Excess 2.8 mmol/L (-2.0-2.0)
[2023-11-02] MEDS ORDERED: VANCOMYCIN 1GM/200ML 250 ML IV ONE (22:00)
[2023-11-02] MEDS ORDERED: VANCOMYCIN 1GM/200ML 250 ML IV SCH (22:00)
[2023-11-02 22:46] LABS: INR 1.21 (0.9-1.15); Partial Thromboplastin Time 26.2 SEC (24.5-34.5); Prothrombin Time 12.5 sec (9.3-11.8)
[2023-11-02 22:56] LABS: Lactic Acid w/Reflex 3.5 mmol/L (0.4-2.0)
[2023-11-02 23:33] LABS: Urine Bacteria NONE SEEN /hpf (None Seen); Urine Blood Negative /uL (Negative); Urine Clarity Clear (Clear); Urine Color Yellow (Yellow); Urine Hyaline Cast FEW /lpf (0 - 2); Urine Protein, UAD 2+ (Negative); Urine Specific Gravity 1.011 (1.001-1.035); Urine Urobilinogen Normal (Negative); Urine WBC 2 /hpf (0 - 5); Urine pH 6.5 (5.0-8.0)
[2023-11-03] VITALS (15 sets, daily range): BP systolic 128–172; BP diastolic 73–104; PULSE 95–146; RESP 16–30; TEMP 97.7–99.5; O2SAT 93–98
[2023-11-03] MEDS ORDERED: LABETALOL HCL 5 MG/ML 4ML SYRINGE IV ONE (00:30)
[2023-11-03] MEDS ORDERED: ALBUTEROL SULF 2.5 MG/0.5ML(0.5%) NEB SOLN NEB ONE (00:30)
[2023-11-03] MEDS ORDERED: IPRATROPIUM BROM 0.5 MG/2.5ML INH SOL NEB ONE (00:30)
[2023-11-03] MEDS ORDERED: NITROGLYCERIN 0.4 MG SL TAB SL PRN (02:30)
[2023-11-03] MEDS ORDERED: ONDANSETRON HCL 4 MG/2 ML VIAL IV PRN (02:30)
[2023-11-03] MEDS ORDERED: MORPHINE SULFATE INJ 2 MG/ml SYRG IV PRN (02:30)
[2023-11-03] MEDS ORDERED: DEXTROSE (50%) 50ML SYRG IV PRN (02:30)
[2023-11-03] MEDS ORDERED: hydrALAZINE HCL 20 MG/ML VL IV PRN (02:30)
[2023-11-03] MEDS ORDERED: DOCUSATE SOD 100 MG CAP PO PRN (02:30)
[2023-11-03] MEDS: PIPERACILLIN-TAZOB 3.375GM 100 ML IV SCH ×2 (03:34→06:00)
[2023-11-03] MEDS: CARVEDILOL 12.5 MG TAB PO SCH ×3 (03:37→21:16)
[2023-11-03] MEDS: IPRATROPIUM BROM 0.5 MG/2.5ML INH SOL NEB SCH ×3 (06:12→18:05)
[2023-11-03] MEDS: ALBUTEROL SULF 2.5 MG/0.5ML(0.5%) NEB SOLN NEB SCH ×3 (06:12→18:05)
[2023-11-03] MEDS: FUROSEMIDE 40 MG/4 ML VIAL IV SCH ×2 (06:22→17:57)
[2023-11-03] MEDS: ACCU-CHEK COMFORT CURVE STRIP VI SCH ×4 (06:25→20:44)
[2023-11-03] MEDS: InsuLIN REG 1unit/0.01ml Soln (100units/ml) SC SCH ×4 (06:25→20:44)
[2023-11-03] MEDS ORDERED: VANCOMYCIN PER PHARMACY 0 MG IV SCH (09:00)
[2023-11-03] MEDS ORDERED: FURO1TAB31 PO (09:47)
[2023-11-03] MEDS ORDERED: PIPERACILLIN-TAZOB 3.375GM 100 ML IV SCH (10:00)
[2023-11-03] MEDS: APIXABAN 5 MG TAB PO SCH ×2 (10:20→21:15)
[2023-11-03] MEDS: PANTOPRAZOLE 40 MG TAB PO SCH (10:20)
[2023-11-03] MEDS: SPIRONOLACTONE 25 MG TAB PO SCH (10:21)
[2023-11-03] MEDS: METOPROLOL TARTRATE 1MG/1ML-5ML VIAL IV PRN (11:24)
[2023-11-03] MEDS ORDERED: VANCOMYCIN 1GM/200ML 250 ML IV SCH (14:00)
[2023-11-03] MEDS: ATORVASTATIN 20 MG TAB PO SCH (21:15)
[2023-11-03] MEDS: ACETAMINOPHEN 325 MG TAB PO PRN (21:18)
[2023-11-04] VITALS (15 sets, daily range): BP systolic 129–137; BP diastolic 67–84; PULSE 74–146; RESP 17–20; TEMP 97.7–98.7; O2SAT 94–100
[2023-11-04] MEDS: METOPROLOL TARTRATE 1MG/1ML-5ML VIAL IV PRN ×2 (03:54→09:55)
[2023-11-04] MEDS: ACETAMINOPHEN 325 MG TAB PO PRN ×2 (04:21→21:58)
[2023-11-04] MEDS: FUROSEMIDE 40 MG/4 ML VIAL IV SCH ×2 (05:46→17:51)
[2023-11-04] MEDS: ACCU-CHEK COMFORT CURVE STRIP VI SCH ×4 (05:53→21:54)
[2023-11-04] MEDS: IPRATROPIUM BROM 0.5 MG/2.5ML INH SOL NEB SCH ×3 (05:56→19:16)
[2023-11-04] MEDS: ALBUTEROL SULF 2.5 MG/0.5ML(0.5%) NEB SOLN NEB SCH ×3 (05:56→19:16)
[2023-11-04] MEDS: InsuLIN REG 1unit/0.01ml Soln (100units/ml) SC SCH ×4 (05:57→21:52)
[2023-11-04] MEDS: APIXABAN 5 MG TAB PO SCH ×2 (09:22→21:53)
[2023-11-04] MEDS: AMIODARONE HCL 200 MG TAB PO SCH ×2 (09:22→21:53)
[2023-11-04] MEDS: PANTOPRAZOLE 40 MG TAB PO SCH (09:22)
[2023-11-04] MEDS: CARVEDILOL 12.5 MG TAB PO SCH ×2 (09:23→21:54)
[2023-11-04] MEDS: SPIRONOLACTONE 25 MG TAB PO SCH (09:25)
[2023-11-04 18:43] LABS: Chloride 100 mmol/L (98-107); Potassium 3.6 mmol/L (3.5-5.1); Sodium 137 mmol/L (136-145)
[2023-11-04 18:44] LABS: Anion Gap 3 (5-15); Calcium 8.5 mg/dL (8.7-10.4); Carbon Dioxide 34 mmol/L (20-30)
[2023-11-04 18:49] LABS: BUN/Creatinine Ratio 15.8 (10.0-20.0); Blood Urea Nitrogen 18 mg/dL (9-23); Glucose 99 mg/dL (74-106)
[2023-11-04 18:50] LABS: Magnesium 1.8 mg/dL (1.6-2.6)
[2023-11-04] MEDS: ATORVASTATIN 20 MG TAB PO SCH (21:53)
[2023-11-05 05:13] VITALS: BP 143/85; PULSE 91; RESP 18; TEMP 98.1; O2SAT 94
[2023-11-05] MEDS: ACCU-CHEK COMFORT CURVE STRIP VI SCH ×2 (05:51→11:11)
[2023-11-05] MEDS: InsuLIN REG 1unit/0.01ml Soln (100units/ml) SC SCH ×2 (05:51→11:12)
[2023-11-05] MEDS: FUROSEMIDE 40 MG/4 ML VIAL IV SCH (05:52)
[2023-11-05 06:20] VITALS: PULSE 92; RESP 18; O2SAT 93; O2SAT 95
[2023-11-05] MEDS: ALBUTEROL SULF 2.5 MG/0.5ML(0.5%) NEB SOLN NEB SCH ×2 (06:20→12:30)
[2023-11-05] MEDS: IPRATROPIUM BROM 0.5 MG/2.5ML INH SOL NEB SCH ×2 (06:20→12:30)
[2023-11-05 06:28] VITALS: PULSE 86; RESP 18; O2SAT 99
[2023-11-05 08:30] VITALS: BP 151/83; PULSE 91; RESP 18; TEMP 98; O2SAT 94
[2023-11-05] MEDS: APIXABAN 5 MG TAB PO SCH (09:46)
[2023-11-05] MEDS: CARVEDILOL 12.5 MG TAB PO SCH (09:48)
[2023-11-05] MEDS: PANTOPRAZOLE 40 MG TAB PO SCH (09:48)
[2023-11-05] MEDS: SPIRONOLACTONE 25 MG TAB PO SCH (09:48)
[2023-11-05] MEDS: AMIODARONE HCL 200 MG TAB PO SCH (09:48)
[2023-11-05] MEDS ORDERED: LIDOCAINE VISCOUS 2% 15ML UD PO ONE (11:45)
[2023-11-05] MEDS ORDERED: MIDAZOLAM HCL 2MG/2ML 2ml VIAL (1mg/ml) IV ONE (11:45)
[2023-11-05] MEDS ORDERED: fentaNYL CITRATE 100 MCG/2 ML VL IV ONE (11:45)
[2023-11-05] MEDS ORDERED: diphenhdrAMINE HCL 50 MG/1 ML VL IV ONE (11:45)
[2023-11-05] MEDS ORDERED: AMIO200T33 PO (13:23)
[2023-11-05 15:47] VITALS: BP 151/83; PULSE 92; TEMP 36.7
== END 2023-11-05 16:12 | disposition home or self-care (01) | DRG 280 ==
LOC: ER 18:13 → EDBD 18:13 → TELE 11-03 02:25 → TELE-CENTR 11-03 17:50
PROVIDERS: ADMIT Internal Medicine; ATTEND Internal Medicine
PROC: B246ZZ4 Ultrasonography of Right and Left Heart, Transesophageal (ICD-10-PCS; principal; 2023-11-05)
DX: I11.0 Hypertensive heart disease with heart failure (principal); I50.23 Acute on chronic systolic (congestive) heart failure; I21.A1 Myocardial infarction type 2; J96.21 Acute and chronic respiratory failure with hypoxia; I48.92 Unspecified atrial flutter; I42.9 Cardiomyopathy, unspecified; K21.9 Gastro-esophageal reflux disease without esophagitis; I48.0 Paroxysmal atrial fibrillation; E11.9 Type 2 diabetes mellitus without complications; E78.5 Hyperlipidemia, unspecified; F31.9 Bipolar disorder, unspecified; F14.10 Cocaine abuse, uncomplicated; I45.9 Conduction disorder, unspecified; Z99.81 Dependence on supplemental oxygen; Z91.199 Patient's noncompliance with other medical treatment and regimen due to unspecified reason; Z82.49 Family history of ischemic heart disease and other diseases of the circulatory system; J44.9 Chronic obstructive pulmonary disease, unspecified
CPT/HCPCS: 36415; 36600; 71045; 80048; 80053; 80202; 81001; 82565; 82805; 82962; 83605; 83735; 83880; 84484; 85025; 85610; 85730; 87040; 87081; 93005; 93312; 94640; 96365; 96375; 99152; G0378; J1815; J2250; J2543; J3490

== ENCOUNTER 2023-11-07 14:14 | Inpatient (IN) | payer OTHER, MEDICAID ==
[~2023-11-07] VITALS: Ht 162.6 cm; Wt 74.4 kg
[~2023-11-07 14:14] MED LIST changes: +AMIO200T33 PO; -FUR20T PO; +FURO1TAB31 PO; -PRED20TA2 PO
[2023-11-07 15:14] LABS: Nucleated Red Blood Cells % 0.1 %; Red Cell Distribution Width 17.3 % (11.8-14.3); White Blood Cell 5.4 10^3/uL (4.4-10.8)
[2023-11-07 15:16] LABS: Basophils # (auto) 0 10 ^3/uL (0-0.2); Basophils % (auto) 0.8 % (0.0-2.0); Eosinophils # (auto) 0.1 10 ^3/uL (0-0.8); Eosinophils % (auto) 2.8 % (0.0-7.0); Hematocrit 36.5 % (36.0-46.0); Hemoglobin 11.4 g/dL (12.2-16.2); Lymphocytes # (auto) 1.1 10 ^3/uL (0.4-5.4); Lymphocytes % (auto) 19.6 % (10.0-50.0); Mean Corpuscular Hemoglobin 25.2 pg (28.0-32.0); Mean Corpuscular Hgb Conc. 31.3 g/dL (32.0-36.0); Mean Corpuscular Volume 80.5 fL (80.0-100.0); Monocytes # (auto) 0.5 10 ^3/uL (0-1.3); Neutrophils # (auto) 3.6 10 ^3/uL (1.6-8.6); Neutrophils % (auto) 66.8 % (37.0-80.0); Red Blood Cells 4.54 10^6/uL (4.0-5.20)
[2023-11-07 15:40] LABS: Alanine Aminotransferase 16 U/L (7-40); Albumin 3.9 g/dL (3.2-4.8); Alkaline Phosphatase 91 U/L (46-116); Anion Gap 3 (5-15); Aspartate Aminotransferase 26 U/L (13-40); BUN/Creatinine Ratio 12.6 (10.0-20.0); Blood Urea Nitrogen 20 mg/dL (9-23); Calcium 9.1 mg/dL (8.7-10.4); Carbon Dioxide 36 mmol/L (20-30); Chloride 102 mmol/L (98-107); Glucose 111 mg/dL (74-106); Lipase 41 U/L (12-53); Magnesium 2.2 mg/dL (1.6-2.6); Potassium 3.7 mmol/L (3.5-5.1); Sodium 141 mmol/L (136-145)
[2023-11-07 15:41] LABS: Bilirubin, Total 1.1 mg/dL (0.2-1.0); Total Protein 6.5 g/dL (5.7-8.2)
[2023-11-07 17:30] VITALS: PULSE 58; RESP 14; O2SAT 90
[2023-11-07 19:30] VITALS: PULSE 60; RESP 14; O2SAT 94
[2023-11-07] MEDS ORDERED: cloNIDine HCL 0.1 MG TAB PO ONE (19:45)
[2023-11-07] MEDS ORDERED: cloNIDine HCL 0.1 MG TAB ONE (19:50)
[2023-11-07] MEDS ORDERED: ACETAMINOPHEN 500 MG TAB PO ONE ×3 (19:57→20:00)
[2023-11-07] MEDS ORDERED: ONDANSETRON HCL 4 MG/2 ML VIAL ONE (22:53)
[2023-11-07] MEDS ORDERED: MORPHINE SULFATE 4 MG/ML SYR/VIAL ONE (22:53)
[2023-11-07] MEDS ORDERED: AZITHROMYCIN 500MG/ 250ML 250 ML IV ONE ×2 (23:00)
[2023-11-07] MEDS ORDERED: MORPHINE SULFATE INJ 2 MG/ml SYRG IV ONE (23:00)
[2023-11-07] MEDS ORDERED: ONDANSETRON HCL 4 MG/2 ML VIAL IV ONE (23:00)
[2023-11-07] MEDS ORDERED: DOCUSATE SOD 100 MG CAP PO PRN (23:15)
[2023-11-07] MEDS ORDERED: HYDROmorphone HCL 2 MG/ML VL/or syr IV PRN (23:15)
[2023-11-07] MEDS ORDERED: HYDROcodone-ACET 5/325MG TAB PO SCH (23:15)
[2023-11-07] MEDS ORDERED: ONDANSETRON HCL 4 MG/2 ML VIAL IV PRN (23:15)
[2023-11-07] MEDS ORDERED: DEXTROSE (50%) 50ML SYRG IV PRN (23:15)
[2023-11-07] MEDS ORDERED: HYDROcodone-ACET 5/325MG TAB PO PRN (23:15)
[2023-11-07] MEDS ORDERED: ACETAMINOPHEN 325 MG TAB PO PRN (23:15)
[2023-11-08] MEDS ORDERED: PATIENTS OWN MEDICATION (Albuterol Sulfate 1 VIAL) NEB SCH (06:00)
[2023-11-08] MEDS ORDERED: SODIUM CHLOR 0.9% PF (SALINE LOCK) 10ML VIAL/SYR IV SCH (06:00)
[2023-11-08] MEDS ORDERED: ACCU-CHEK COMFORT CURVE STRIP VI SCH (07:00)
[2023-11-08] MEDS ORDERED: InsuLIN REG 1unit/0.01ml Soln (100units/ml) SC SCH ×2 (07:00)
[2023-11-08 07:30] VITALS: PULSE 54; RESP 21; O2SAT 96
[2023-11-08] MEDS ORDERED: SPIRONOLACTONE 25 MG TAB PO SCH (10:00)
[2023-11-08] MEDS ORDERED: INSULIN LANTUS (GLARGINE) 1 /0.01ml (100units/ml) SC SCH (10:00)
[2023-11-08] MEDS ORDERED: PATIENTS OWN MEDICATION (Fluticasone-Salmeterol (Advair Diskus 250/50) 1 PUFF) INH SCH (10:00)
[2023-11-08] MEDS ORDERED: POTASSIUM CHL 10 Meq TABLET PO SCH (10:00)
[2023-11-08] MEDS ORDERED: AMIODARONE HCL 200 MG TAB PO SCH (10:00)
[2023-11-08] MEDS ORDERED: PANTOPRAZOLE 40 MG TAB PO SCH (10:00)
[2023-11-08] MEDS ORDERED: amLODIPine BESYLATE 5 MG TAB PO SCH (10:00)
[2023-11-08] MEDS ORDERED: APIXABAN 5 MG TAB PO SCH ×2 (10:00→22:00)
[2023-11-08] MEDS ORDERED: CARVEDILOL 12.5 MG TAB PO SCH (10:00)
[2023-11-08] MEDS ORDERED: DEXTROSE (50%) 50ML SYRG IV PRN (10:15)
[2023-11-08] MEDS ORDERED: ACETAMINOPHEN 325 MG TAB PO PRN ×2 (10:15→21:30)
[2023-11-08] MEDS ORDERED: LACTULOSE 20Gm/30ML SOLN PO ONE (10:15)
[2023-11-08] MEDS ORDERED: FUROSEMIDE 40 MG/4 ML VIAL ONE (10:25)
[2023-11-08] MEDS: FUROSEMIDE 40 MG/4 ML VIAL IV SCH (10:27)
[2023-11-08] MEDS ORDERED: LACTULOSE 20Gm/30ML SOLN ONE (11:10)
[2023-11-08] MEDS ORDERED: DOCUSATE SOD 100 MG CAP PO ONE ×2 (11:11→22:20)
[2023-11-08] MEDS ORDERED: AMIODARONE HCL 200 MG TAB ONE ×2 (11:11→22:20)
[2023-11-08] MEDS ORDERED: CARVEDILOL 12.5 MG TAB ONE (11:16)
[2023-11-08] MEDS ORDERED: APIXABAN 5 MG TAB ONE ×2 (11:16→22:27)
[2023-11-08] MEDS: CARVEDILOL 12.5 MG TAB PO SCH ×2 (11:18→22:00)
[2023-11-08] MEDS: DOCUSATE SOD 100 MG CAP PO SCH ×2 (11:18→22:30)
[2023-11-08] MEDS: AMIODARONE HCL 200 MG TAB PO SCH ×2 (11:18→22:00)
[2023-11-08] MEDS: APIXABAN 5 MG TAB PO SCH ×2 (11:19→22:30)
[2023-11-08] MEDS: ACCU-CHEK COMFORT CURVE STRIP VI SCH ×3 (11:30→22:00)
[2023-11-08] MEDS: InsuLIN REG 1unit/0.01ml Soln (100units/ml) SC SCH ×3 (11:30→22:00)
[2023-11-08] MEDS ORDERED: ACETAMINOPHEN 325 MG TAB PO ONE (16:10)
[2023-11-08 19:32] VITALS: PULSE 69; RESP 16; O2SAT 94
[2023-11-08] MEDS ORDERED: DOCUSATE SOD 100 MG CAP PO PRN (21:30)
[2023-11-08] MEDS ORDERED: HYDROmorphone HCL 2 MG/ML VL/or syr IV PRN (21:30)
[2023-11-08] MEDS ORDERED: NITROGLYCERIN 0.4 MG SL TAB SL PRN (21:30)
[2023-11-08] MEDS ORDERED: ONDANSETRON HCL 4 MG/2 ML VIAL IV PRN (21:30)
[2023-11-08] MEDS ORDERED: MORPHINE SULFATE INJ 2 MG/ml SYRG IV PRN (21:30)
[2023-11-08] MEDS ORDERED: ATORVASTATIN 20 MG TAB PO SCH (22:00)
[2023-11-08] MEDS ORDERED: PATIENTS OWN MEDICATION (Quetiapine Fumerate (Quetiapine Fumarate) 1 TAB) PO SCH (22:00)
[2023-11-08] MEDS ORDERED: HYDROcodone-ACET 5/325MG TAB ONE (22:28)
[2023-11-08] MEDS: SODIUM CHLOR 0.9% PF (SALINE LOCK) 10ML VIAL/SYR IV SCH (22:29)
[2023-11-08] MEDS: HYDROcodone-ACET 5/325MG TAB PO PRN (22:30)
[2023-11-09] VITALS (8 sets, daily range): BP systolic 139–170; BP diastolic 63–82; PULSE 63–84; RESP 16–23; TEMP 98.3–99.2; O2SAT 93–99
[2023-11-09] MEDS: SODIUM CHLOR 0.9% PF (SALINE LOCK) 10ML VIAL/SYR IV SCH ×3 (06:00→22:27)
[2023-11-09] MEDS: InsuLIN REG 1unit/0.01ml Soln (100units/ml) SC SCH ×4 (06:43→22:00)
[2023-11-09] MEDS: ACCU-CHEK COMFORT CURVE STRIP VI SCH ×4 (06:44→22:27)
[2023-11-09] MEDS: hydrALAZINE HCL 20 MG/ML VL IV PRN (09:22)
[2023-11-09] MEDS: FUROSEMIDE 40 MG/4 ML VIAL IV SCH (10:00)
[2023-11-09] MEDS ORDERED: ENOXAPARIN SOD 40 MG/0.4 ML SYRINGE SC SCH (10:00)
[2023-11-09] MEDS: APIXABAN 5 MG TAB PO SCH ×2 (10:36→22:24)
[2023-11-09] MEDS: DOCUSATE SOD 100 MG CAP PO SCH ×2 (10:36→22:23)
[2023-11-09] MEDS: HYDROcodone-ACET 5/325MG TAB PO PRN (10:36)
[2023-11-09] MEDS: SPIRONOLACTONE 25 MG TAB PO SCH (10:37)
[2023-11-09] MEDS: AMIODARONE HCL 200 MG TAB PO SCH ×2 (10:37→22:23)
[2023-11-09] MEDS: CARVEDILOL 12.5 MG TAB PO SCH ×2 (10:37→22:24)
[2023-11-10] MEDS: hydrALAZINE HCL 20 MG/ML VL IV PRN (04:35)
[2023-11-10] MEDS: HYDROcodone-ACET 5/325MG TAB PO PRN ×2 (04:35→15:35)
[2023-11-10 05:00] VITALS: BP 191/91; PULSE 71; RESP 23; TEMP 98.2; O2SAT 98
[2023-11-10] MEDS: InsuLIN REG 1unit/0.01ml Soln (100units/ml) SC SCH ×3 (06:23→16:51)
[2023-11-10] MEDS: SODIUM CHLOR 0.9% PF (SALINE LOCK) 10ML VIAL/SYR IV SCH ×2 (06:25→14:00)
[2023-11-10] MEDS: ACCU-CHEK COMFORT CURVE STRIP VI SCH ×3 (06:25→16:51)
[2023-11-10 08:00] VITALS: PULSE 88; RESP 18; O2SAT 96
[2023-11-10 09:00] VITALS: BP 135/63; PULSE 88; RESP 18; TEMP 97.4; O2SAT 93
[2023-11-10] MEDS: AMIODARONE HCL 200 MG TAB PO SCH (09:14)
[2023-11-10] MEDS: APIXABAN 5 MG TAB PO SCH (09:15)
[2023-11-10] MEDS: CARVEDILOL 12.5 MG TAB PO SCH (09:15)
[2023-11-10] MEDS: DOCUSATE SOD 100 MG CAP PO SCH (09:15)
[2023-11-10] MEDS: SPIRONOLACTONE 25 MG TAB PO SCH (09:15)
[2023-11-10] MEDS ORDERED: FUROSEMIDE 20 MG/2 ML VIAL ONE (10:39)
[2023-11-10] MEDS: FUROSEMIDE 40 MG/4 ML VIAL IV SCH (10:52)
[2023-11-10 13:00] VITALS: BP 129/79; PULSE 94; RESP 18; TEMP 98.1; O2SAT 98
[2023-11-10 17:00] VITALS: BP 115/78; PULSE 89; RESP 22; TEMP 98.7; O2SAT 98
== END 2023-11-10 18:33 | disposition home or self-care (01) | DRG 683 ==
LOC: EDBD 14:14 → ER 14:14 → TELE 23:19 → UNDOADMIN 23:19 → TELE 11-08 21:23 → TELE-CENTR 11-08 23:19
PROVIDERS: ADMIT Internal Medicine; ATTEND Internal Medicine
DX: N17.9 Acute kidney failure, unspecified (principal); I38 Endocarditis, valve unspecified; I50.22 Chronic systolic (congestive) heart failure; R18.8 Other ascites; R17 Unspecified jaundice; J44.1 Chronic obstructive pulmonary disease with (acute) exacerbation; J44.0 Chronic obstructive pulmonary disease with (acute) lower respiratory infection; J96.10 Chronic respiratory failure, unspecified whether with hypoxia or hypercapnia; R16.0 Hepatomegaly, not elsewhere classified; I48.0 Paroxysmal atrial fibrillation; K21.9 Gastro-esophageal reflux disease without esophagitis; I11.0 Hypertensive heart disease with heart failure; F17.210 Nicotine dependence, cigarettes, uncomplicated; K59.00 Constipation, unspecified; F32.9 Major depressive disorder, single episode, unspecified; E78.5 Hyperlipidemia, unspecified; E11.9 Type 2 diabetes mellitus without complications; E66.01 Morbid (severe) obesity due to excess calories; Z68.28 Body mass index [BMI] 28.0-28.9, adult; Z82.49 Family history of ischemic heart disease and other diseases of the circulatory system; Z86.73 Personal history of transient ischemic attack (TIA), and cerebral infarction without residual deficits; Z99.81 Dependence on supplemental oxygen; Z88.5 Allergy status to narcotic agent; Z90.49 Acquired absence of other specified parts of digestive tract; Z91.199 Patient's noncompliance with other medical treatment and regimen due to unspecified reason
CPT/HCPCS: 36415; 74176; 80053; 82962; 83605; 83690; 83735; 83880; 84484; 85025; 87040; 93005; G0378; J1815

== ENCOUNTER 2023-11-11 15:38 | Observation (INO) | payer OTHER, MEDICAID ==
[~2023-11-11] VITALS: Ht 162.6 cm; Wt 74.4 kg
[2023-11-11] MEDS ORDERED: METOPROLOL TARTRATE 1MG/1ML-5ML VIAL IV ONE (15:45)
[2023-11-11 16:10] LABS: Basophils # (auto) 0.1 10 ^3/uL (0-0.2); Lymphocytes # (auto) 1.4 10 ^3/uL (0.4-5.4); Monocytes # (auto) 0.9 10 ^3/uL (0-1.3); Nucleated Red Blood Cells % 0.1 %
[2023-11-11 16:12] LABS: Basophils % (auto) 0.9 % (0.0-2.0); Eosinophils # (auto) 0.1 10 ^3/uL (0-0.8); Eosinophils % (auto) 1.5 % (0.0-7.0); Hematocrit 43.2 % (36.0-46.0); Hemoglobin 13.7 g/dL (12.2-16.2); Lymphocytes % (auto) 15.9 % (10.0-50.0); Mean Corpuscular Hemoglobin 25.3 pg (28.0-32.0); Mean Corpuscular Hgb Conc. 31.6 g/dL (32.0-36.0); Monocytes % (auto) 9.9 % (0.0-12.0); Neutrophils # (auto) 6.4 10 ^3/uL (1.6-8.6); Neutrophils % (auto) 71.8 % (37.0-80.0); Red Cell Distribution Width 17.2 % (11.8-14.3)
[2023-11-11 16:44] LABS: Alanine Aminotransferase 17 U/L (7-40); Alkaline Phosphatase 89 U/L (46-116); Anion Gap 8 (5-15); BUN/Creatinine Ratio 17.1 (10.0-20.0); Blood Urea Nitrogen 14 mg/dL (9-23); Calcium 9.2 mg/dL (8.7-10.4); Carbon Dioxide 28 mmol/L (20-30); Chloride 103 mmol/L (98-107); Glucose 127 mg/dL (74-106); Magnesium 1.8 mg/dL (1.6-2.6); Potassium 4.1 mmol/L (3.5-5.1); Sodium 139 mmol/L (136-145)
[2023-11-11 16:45] LABS: Albumin 3.8 g/dL (3.2-4.8); Aspartate Aminotransferase 32 U/L (13-40); Bilirubin, Total 1.5 mg/dL (0.2-1.0); Creatine Kinase IFCC 60 U/L (34-145); Total Protein 6.4 g/dL (5.7-8.2)
[2023-11-11] MEDS ORDERED: FUROSEMIDE 20 MG/2 ML VIAL IV ONE (17:30)
[2023-11-11 17:57] VITALS: PULSE 140; RESP 18; O2SAT 95
[2023-11-11] MEDS: HYDROcodone-ACET 5/325MG TAB PO ONE ×2 (18:17→18:26)
[2023-11-11] MEDS: AMIODARONE HCL 200 MG TAB PO SCH ×2 (18:18→23:31)
[2023-11-11] MEDS: SPIRONOLACTONE 25 MG TAB PO SCH (18:18)
[2023-11-11] MEDS: CARVEDILOL 12.5 MG TAB PO SCH ×2 (18:26→23:35)
[2023-11-11] MEDS ORDERED: ACETAMINOPHEN 500 MG TAB PO ONE (18:30)
[2023-11-11] MEDS: ACETAMINOPHEN 325 MG TAB PO PRN (19:07)
[2023-11-11 19:42] VITALS: PULSE 93; RESP 22; O2SAT 99
[2023-11-11] MEDS ORDERED: hydrALAZINE HCL 20 MG/ML VL IV PRN (20:00)
[2023-11-11] MEDS ORDERED: METOPROLOL TARTRATE 1MG/1ML-5ML VIAL IV PRN (20:00)
[2023-11-11] MEDS ORDERED: IOHEXOL 350 MG/ML 100ML IJ ONE (20:37)
[2023-11-11 20:52] LABS: Triglycerides 75 mg/dL (< 150)
[2023-11-11 20:53] LABS: LDL Cholesterol 99 mg/dL (< 100)
[2023-11-11 20:54] LABS: Cholesterol 147 mg/dL (< 200); HDL Cholesterol 38 mg/dL (40-59)
[2023-11-11] MEDS: ATORVASTATIN 20 MG TAB PO SCH (23:30)
[2023-11-11] MEDS: APIXABAN 5 MG TAB PO SCH (23:31)
[2023-11-11] MEDS: PANTOPRAZOLE 40 MG TAB PO SCH (23:31)
[2023-11-12] MEDS: ACETAMINOPHEN 325 MG TAB PO PRN ×2 (03:26→14:01)
[2023-11-12] MEDS ORDERED: MORPHINE SULFATE INJ 2 MG/ml SYRG IV PRN (06:30)
[2023-11-12] MEDS ORDERED: NITROGLYCERIN 0.4 MG SL TAB SL PRN (06:30)
[2023-11-12] MEDS ORDERED: LORazepam 2MG/ML-1ML VIAL IV PRN (09:45)
[2023-11-12] MEDS: PANTOPRAZOLE 40 MG TAB PO SCH ×2 (10:20→23:16)
[2023-11-12] MEDS: CARVEDILOL 12.5 MG TAB PO SCH ×2 (10:20→23:15)
[2023-11-12] MEDS: AMIODARONE HCL 200 MG TAB PO SCH ×2 (10:21→23:16)
[2023-11-12] MEDS: SPIRONOLACTONE 25 MG TAB PO SCH (10:21)
[2023-11-12] MEDS: FUROSEMIDE 20 MG TAB PO SCH (10:21)
[2023-11-12] MEDS: APIXABAN 5 MG TAB PO SCH ×2 (10:27→23:14)
[2023-11-12] MEDS ORDERED: LORazepam 2MG/ML-1ML VIAL IV ONE (11:15)
[2023-11-12 19:30] VITALS: PULSE 89; RESP 24; O2SAT 95
[2023-11-12] MEDS: ATORVASTATIN 20 MG TAB PO SCH (23:14)
[2023-11-13] VITALS (8 sets, daily range): BP systolic 138–169; BP diastolic 60–84; PULSE 70–91; RESP 16–20; TEMP 98–98.6; O2SAT 92–99
[2023-11-13] MEDS: ACETAMINOPHEN 325 MG TAB PO PRN ×2 (01:43→08:41)
[2023-11-13] MEDS: FUROSEMIDE 20 MG TAB PO SCH (08:34)
[2023-11-13] MEDS: APIXABAN 5 MG TAB PO SCH (08:35)
[2023-11-13] MEDS: AMIODARONE HCL 200 MG TAB PO SCH (08:35)
[2023-11-13] MEDS: PANTOPRAZOLE 40 MG TAB PO SCH (08:36)
[2023-11-13] MEDS: CARVEDILOL 12.5 MG TAB PO SCH (08:37)
[2023-11-13] MEDS: SPIRONOLACTONE 25 MG TAB PO SCH (08:37)
[2023-11-13 08:53] LABS: Hepatitis B Surface Antigen Negative (Negative)
[2023-11-13 09:15] LABS: Hepatitis C Antibody Negative (Negative)
== END 2023-11-13 16:40 ==
LOC: ER 15:38 → EDBD 15:38 → EDUNIT# 15:38 → TELE 11-12 06:23 → TELE-WESTW 11-13
PROVIDERS: ADMIT Internal Medicine; ATTEND Internal Medicine
DX: I63.521 Cerebral infarction due to unspecified occlusion or stenosis of right anterior cerebral artery (principal); I48.0 Paroxysmal atrial fibrillation; I62.00 Nontraumatic subdural hemorrhage, unspecified; I63.9 Cerebral infarction, unspecified; I11.0 Hypertensive heart disease with heart failure; I50.23 Acute on chronic systolic (congestive) heart failure; J44.1 Chronic obstructive pulmonary disease with (acute) exacerbation; R79.89 Other specified abnormal findings of blood chemistry; J96.10 Chronic respiratory failure, unspecified whether with hypoxia or hypercapnia; F32.A Depression, unspecified; E11.9 Type 2 diabetes mellitus without complications; E78.5 Hyperlipidemia, unspecified; K21.9 Gastro-esophageal reflux disease without esophagitis; F17.210 Nicotine dependence, cigarettes, uncomplicated; Z79.01 Long term (current) use of anticoagulants; Z79.899 Other long term (current) drug therapy; Z91.148 Patient's other noncompliance with medication regimen for other reason; Z91.199 Patient's noncompliance with other medical treatment and regimen due to unspecified reason; Z79.4 Long term (current) use of insulin; Z86.73 Personal history of transient ischemic attack (TIA), and cerebral infarction without residual deficits; Z90.49 Acquired absence of other specified parts of digestive tract
CPT/HCPCS: 36415; 70450; 70496; 70551; 71045; 80053; 80061; 82550; 83605; 83735; 83880; 84484; 85025; 86803; 87340; 92610; 93005; 93306; 95819; 96374; 96375; 97163; 99285; G0378; J0360; J1940; J2060; Q9967